=== PATIENT | female | born 1970 | race Caucasian/White ===

== ENCOUNTER → 2018-05-31 08:56 | Outpatient (CLI) | payer BC, SELFPAY ==
--- NOTE | 2018-05-31 09:00 | US_ITS ---
US abdomen limited History:Upper abdominal pain, recent cholecystectomy Ordering Physician:Jhoan Diallo MD Patient Age: 48 years Comparison:None Findings: Pancreas:Unremarkable. No obvious mass or abnormal fluid collection. No ductal dilatation Liver:Unremarkable. No obvious mass or abnormal fluid collection. No ductal dilatation. There is appropriate directional blood flow within a nondilated portal vein. Common bile duct is normal at 5 mm. Right Kidney:Unremarkable. Normal size and echogenicity. No hydronephrosis Gallbladder:Status post cholecystectomy. Normal common bile duct 5 mm Impression:Status post cholecystectomy. Unremarkable right upper quadrant ultrasound. No biliary dilatation
== END ==
PROVIDERS: PCP Family Medicine; Visit Provider Internal Medicine Gastroenterology
DX: R10.11 Right upper quadrant pain (principal)
CPT/HCPCS: 76705

== ENCOUNTER → 2021-09-21 11:41 | Outpatient (CLI) | payer BC, SELFPAY ==
--- NOTE | 2021-09-21 | CA_ITS ---
APPROVED REPORT Exam: Pharmacologic Technologist: Kathie Terrell, Ht: 6 ft 1 in Wt: 315 lbs BSA: 2.61 m2 HR: 61 bpm BP: 159/81 mmHg Rhythm: NSR, PVCS, LVH Medical History Medical History: HTN, Hyperlipidemia Medications: ATORVASTATIN, BUSPIRONE, CETIRIZINE, DICLOFENAC, EPINEPHRINE, VIT D2, ESCITALOPRAM, LISINOPRIL, METOPROLOL, OMEPRAZOLE, POLYETHYLENE, PSYLLIUM, SUCRALFATE Cardiac Risk Factors: HTN, Hyperlipidemia, FHX of CAD Stress Test Details Test: LEXISCAN HR Resting HR: 62 bpm Max Heart Rate (APMHR): 167.942035 bpm Max HR Achieved: 91 bpm Target HR (85% APMHR): 141.619408 bpm % of APMHR: 54.49 Recovery HR: 71 bpm BP Resting BP: 159/81 mmHg Max BP: 159/81 mmHg Recovery BP: 149.0/79.0 mmHg ECG Resting ECG: NSR, PVCS, LVH Clinical Exercise duration: 04:01 min Highest Stage Achieved: Stress ECG Conclusion PT HAD CHEST HEAVINESS, SOA, DENISE. RARE PVC. NO SIGNIFICANT CHANGES. UNREMARKABLE LEXISCAN STRESS MYOVIEW IMAGES REPORTED SEPARATELY Electronically signed by : eHrman Hill MD 09/21/2021 17:11:27
--- NOTE | 2021-09-21 11:42 | NM_ITS ---
APPROVED REPORT Exam: Nuclear Stress Test Indication: chest pain..syncope..fatigue Patient Location: Outpatient Stress Tech: Kathie Terrell NM Tech:Tyesha PryorFROYT, RT (R)(N) Ht: 6 ft 1 in Wt: 315 lbs Bra Size: 46d HR: 62 bpm BP: 159/81 mmHg BSA: 2.61 m2 TID: 1.16 BMI: 41.5 History: chest pain..syncope..fatigue Procedure: Patient received a 0.4 mg of intravenous Lexiscan, resting heart rate 62 bpm, resting blood pressure 159/81 mmHg, with Lexiscan maximum heart rate achived was 91 bpm which is 85 % of the maximum predicted heart rate and blood pressure was 159/81 mmHg. With Lexiscan, patient denied any complaint of chest pain. patient was unable to lay on her belly for prone images. Electrocardiogram Resting electrocardiogram shows sinus rhythm, with Lexiscan there is less than 1.[address] segment depression noted from the baseline EKG. The EKG portion of the Lexiscan is nondiagnostic. Cardiac Stress and Resting SPECT Images: Cardiac Stress and Resting SPECT images were obtained using technetium 99m Myoview 32.9 mCi stress and 10.78 mCi at rest. Gated SPECT for analysis of segmental wall motion and calculation of the ejection fraction also done. Cardiac stress and rest SPECT images show uniform myocardial activity without segmental perfusion abnormality, computer derived ejection fraction is 56% with no regional wall motion abnormality, right ventricle is normal size and contractility. Conclusion: 1. The EKG portion of the Lexiscan is nondiagnostic. 2. No scintigraphic evidence of reversible ischemia seen, computer derived ejection fraction 56% with no regional wall motion abnormality, right ventricle is normal size and contractility. 3. Normal Lexiscan Myoview study. Electronically signed by : Herman Hill MD 09/23/2021 13:37:46
--- NOTE | 2021-09-21 12:49 | CA_ITS ---
APPROVED REPORT EXAM: Comprehensive 2D, Doppler, and color-flow Echocardiogram Sounding Device Operator: DB Aaron, RVS Ht: 6 ft 1 in Wt: 315lbs BSA: 2.61 BP: 145/82 mmHg Indications: CP, BABAK, CP, HTN, SOB 2D Dimensions IVSd 0.96 cm LVEF (Visual) 39.00 % PWd 0.84 cm LVDd 4.62 cm LVDs 3.75 cm Aortic Root 2.49 cm Left Atrium 3.82 cm LVOT 2.23 cm (M/F) 1.5-2.5 M-Mode Dimensions LA Diam 3.70 cm (1.9-4.0) Ao Diam 3.16 cm (2.0-3.7) EPSs 1.18 cm TAPSE 2.59 (<1.7) LV Diastology E Decel Time 293.00 (160-240 msec) E/A Ratio 1.48 MED E' 8.70 (< 7 cm/sec) MED A' 5.90 cm/s E'/MED E' Ratio 11.80 (>14) LAT E' 7.20 (<10 cm/sec) LAT A' 10.80 cm/s E/LAT E' Ratio 14.26 (>14) Aortic Valve LVOT Max 97.00 (70-110 cm/s) LVOT VTI 22.15 cm AoV Peak Raul. 156.00 (50-130 cm/s) AO Peak GR. 9.80 mmHg AO Mean GR. 5.00 (<5 mmHg) AO VTI 34.17 (18-25 cm) SEBAS (VTI) 2.53 (2.5-4.5 cm2) Mitral Valve MV A Velocity 69.00 (40-130 cm/s) E/A Ratio 1.48 MV Decel. Time 293.00 (160-240 ms) MV Mean Gr. 2.30 (<2mmHg) MV PHT 83.00 ms Pulmonary Valve PV Peak Velocity 78.00 (50-150 cm/s) Tricuspid Valve TR P. Velocity 212.00 cm/s RAP Estimate 10.00 mmHg RVSP 28.00 mmHg Left Ventricle Left atrium normal size, left ventricle is normal size, visually estimated ejection fraction 55% with no regional wall motion abnormality, diastolic parameters are within normal range. Right Ventricle Right atrium and right ventricle are normal size and contractility. Aortic Valve Aortic valve is grossly normal, there is no aortic stenosis or aortic insufficiency. Mitral Valve Mitral valve grossly normal, there is trace mitral regurgitation. Tricuspid Valve Tricuspid grossly normal, there is trace tricuspid regurgitation, tricuspid regurgitation jet velocity is inadequate for calculation of the right ventricular systolic pressure. Pulmonic Valve Pulmonic valve is poorly visualized. Great Vessels Aortic root is normal size. Inferior vena cava is normal size with normal spectral collapse. Pericardium No significant pericardial effusion noted. Conclusion 1. Normal left ventricular size, estimated ejection fraction 55% with no regional wall motion abnormality, diastolic parameters are within normal range. 2. Trace mitral and tricuspid rotation. 3. No significant pericardial effusion 4. Inferior vena cava normal size with normal spectral collapse. Electronically signed by : Herman Hill MD 09/21/2021 16:45:18
--- NOTE | 2021-09-21 13:23 | HMH.ITSHM ---
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 []SUCRALFATE BUSPIRONE VITAMIN D METOPROLOL ESCITALOPRAM ASA ATORVASTATIN OMEPRAZOLE LISINOPRIL
== END ==
PROVIDERS: PCP Family Medicine; Visit Provider Nurse Practitioner Family
DX: R06.00 Dyspnea, unspecified (principal); R07.89 Other chest pain; I10 Essential (primary) hypertension; G47.33 Obstructive sleep apnea (adult) (pediatric); Z82.49 Family history of ischemic heart disease and other diseases of the circulatory system
CPT/HCPCS: 78452; 93017; 93306; A9502; G0399; J2785

== ENCOUNTER → 2021-10-03 07:39 | Outpatient (CLI) | payer SELFPAY ==
--- NOTE | 2021-10-03 07:40 | CT_ITS ---
FINAL REPORT CLINICAL HISTORY: family hx heart disease, chest pain FINDINGS: CT CORONARY CALCIUM SCORE W/O TECHNIQUE: Thin-section axial images were obtained through the heart and coronary arteries per CT coronary calcium score protocol. This study was performed with techniques to keep radiation doses as low as reasonably achievable (ALARA). Individualized dose reduction techniques using automated exposure control or adjustment of mA and/or kV according to the patient's size were employed. FINDINGS: On the axial images, the area of greatest calcification is within the left circumflex with other small areas in the left anterior descending artery and the right coronary artery. This gives a coronary artery calcium score of 69 based on the Agatston scale. This coronary artery calcium score places the patient within the 93rd percentile based on age and gender. The heart size is normal. There is no pleural or pericardial effusion. Limited evaluation of the lungs reveal no suspicious nodule. IMPRESSION: Coronary artery calcium score of 69 based on the Agatston scale placing the patient in the 93rd percentile based on age and gender. Reviewed, Interpreted and Dictated by Shady Godfrey III, MD Transcribed by Oxana Hess Authenticated and [facility]
== END ==
PROVIDERS: PCP Family Medicine; Visit Provider Internal Medicine Cardiovascular Disease
DX: R06.00 Dyspnea, unspecified (principal); R07.89 Other chest pain; Z82.49 Family history of ischemic heart disease and other diseases of the circulatory system
CPT/HCPCS: 75571

== ENCOUNTER → 2021-11-23 08:58 | Outpatient (CLI) | payer BC, SELFPAY ==
[2021-11-23 09:37] LABS: Basophils # 0.1 K/mm3 (0-0.2); Basophils % 1.5 % (0.1-2.0); Eosinophils # 0.2 K/mm3 (0.0-0.4); Eosinophils % 2.1 % (0.1-12.0); Hematocrit 39.9 % (37.0-47.0); Hemoglobin 12.3 g/dL (12.2-16.2); Lymphocytes % 26.8 % (10-50); Mean Corpuscular HGB Conc 30.9 g/dL (31.8-35.4); Mean Corpuscular Hemoglobin 26.8 pg (27.0-31.2); Mean Corpuscular Volume 86.6 fl (81-99); Mean Platelet Volume 10.2 fl (7.4-10.4); Monocytes # 0.4 K/mm3 (0.1-1.0); Monocytes % 4.7 % (1.7-9.3); Neutrophils # 4.8 K/mm3 (1.8-7.8); Neutrophils % 64.9 % (37.0-80.0); Platelet Count 228 K/mm3 (142-424); Red Cell Distribution Width 15.3 % (11.5-17.5); White Blood Count 7.4 K/mm3 (4.8-10.8)
[2021-11-23 10:33] LABS: Anion Gap 9.6 mEq/L (5-15); Blood Urea Nitrogen 9 mg/dl (7-17); Calcium 9.6 mg/dl (8.4-10.2); Carbon Dioxide 30 mmol/L (22.0-30.0); Chloride 106 mmol/L (98-107); Estimated Glomerular Filt Rate 105 ml/min (>60); GFR (African American) 127 ML/MIN (>60); Glucose 106 mg/dl (74-100); Potassium 4.6 mmoL/L (3.5-5.1); Sodium 141 mmol/L (136-145)
== END ==
PROVIDERS: PCP Family Medicine; Visit Provider Internal Medicine Cardiovascular Disease
DX: Z01.812 Encounter for preprocedural laboratory examination (principal); Z20.822 Contact with and (suspected) exposure to COVID-19; R06.00 Dyspnea, unspecified; I10 Essential (primary) hypertension; E78.2 Mixed hyperlipidemia; I25.84 Coronary atherosclerosis due to calcified coronary lesion; G47.33 Obstructive sleep apnea (adult) (pediatric); Z82.49 Family history of ischemic heart disease and other diseases of the circulatory system
CPT/HCPCS: 36415; 80048; 85025; C9803; U0003; U0005

== ENCOUNTER 2021-11-24 08:37 | Day surgery (SDC) | payer BC, SELFPAY ==
[2021-11-24] VITALS (12 sets, daily range): BP systolic 126–149; BP diastolic 76–90; PULSE 54–65; RESP 16–20; TEMP 36.1–37; O2SAT 95–98; BMI 41.0
--- NOTE | 2021-11-24 | IR_ITS ---
APPROVED REPORT Patient Location: Outpatient PROCEDURES Left heart catheterization Left ventriculogram Selective coronary angiogram INDICATION Worsening angina pectoris Informed consent was obtained prior to the procedure. COMPLICATIONS None Estimated Blood Loss: Less than 10 mls TECHNIQUE One percent lidocaine used to anesthetize the right anterior aspect of the wrist. The right radial artery was accessed via the Seldinger technique. A 6 Slovenian sheath was placed in the right radial artery. 2.5 mg of verapamil, 800 mcg of nitroglycerin, 1mg Lidocaine and 5000 U Heparin were given through the arterial sheath. The papa catheter was also used to perform left heart catheterization, left ventriculogram and selective coronary angiogram. At the end of the procedure the sheath was removed good hemostasis was achieved using Traclet band, patient was transferred to the postop holding area in stable condition. ANGIOGRAPHIC RESULTS The left main artery Normal The left anterior descending artery Normal The circumflex artery Normal The right coronary artery Dominant normal The TOW[place]END ventriculogram reveals Dilated preserved 50% The left ventricular end-diastolic pressure Severely elevated at 40 to 45 mmHg IMPRESSION Normal coronary arteries Dilated left ventricle with preserved ejection fraction Severely elevated LVEDP PLAN 1. Treatment of diastolic dysfunction 2. Sleep apnea 3. Avoidance of pop and high salt content Electronically signed by : Kade Abebe MD 11/24/2021 12:13:12
== END 2021-11-24 14:27 | disposition home or self-care (01) ==
LOC: CATHLAB 08:38
PROVIDERS: PCP Family Medicine; Visit Provider Internal Medicine
DX: I25.118 Atherosclerotic heart disease of native coronary artery with other forms of angina pectoris (principal); Z79.899 Other long term (current) drug therapy; Z88.8 Allergy status to other drugs, medicaments and biological substances; I25.84 Coronary atherosclerosis due to calcified coronary lesion; I10 Essential (primary) hypertension; Z82.49 Family history of ischemic heart disease and other diseases of the circulatory system
CPT/HCPCS: 93458; 99152; C1725; C1769; J1644; Q9967

== ENCOUNTER → 2021-12-13 14:42 | Outpatient (CLI) | payer BC, SELFPAY ==
[2021-12-13 15:31] LABS: Anion Gap 14.8 mEq/L (5-15); Blood Urea Nitrogen 13 mg/dl (7-17); Calcium 10.1 mg/dl (8.4-10.2); Carbon Dioxide 28 mmol/L (22.0-30.0); Chloride 100 mmol/L (98-107); Estimated Glomerular Filt Rate 75 ml/min (>60); GFR (African American) 91 ML/MIN (>60); Glucose 152 mg/dl (74-100); Potassium 4.8 mmoL/L (3.5-5.1); Sodium 138 mmol/L (136-145)
== END ==
PROVIDERS: PCP Family Medicine; Visit Provider Nurse Practitioner
DX: R06.00 Dyspnea, unspecified (principal); I10 Essential (primary) hypertension; E78.2 Mixed hyperlipidemia; G47.33 Obstructive sleep apnea (adult) (pediatric)
CPT/HCPCS: 36415; 80048

== ENCOUNTER 2022-05-07 21:48 | Emergency (ER) | payer BC, SELFPAY ==
[2022-05-07 21:49] VITALS: BP 162/85; PULSE 100; RESP 23; TEMP 36.7; O2SAT 97; BMI 39.5
--- NOTE | 2022-05-07 21:58 | XR_ITS ---
PROCEDURE INFORMATION: Exam: XR Chest Exam date and time: 05/07/2022 9:58 PM Age: 52 years old Clinical indication: Chest wall pain; Additional info: Chest pain TECHNIQUE: Imaging protocol: Radiologic exam of the chest. Views: 2 views. COMPARISON: No relevant prior studies available. FINDINGS: Lungs: Clear, symmetrically inflated lungs. Pleural spaces: No pleural effusion. No pneumothorax. Heart/Mediastinum: Cardiac silhouette is normal in size for technique. Bones/joints: Age appropriate. IMPRESSION: No acute cardiopulmonary abnormality.
--- NOTE | 2022-05-07 21:58 | ECG_ITS ---
APPROVED REPORT Exam: Resting ECG HR:97 bpm ECG Measurements Heart Rate [address] 153 P 39 QRSd 93 QRS 13 QT 343 T 73 QTc 397 Conclusion SINUS RHYTHM NONSPECIFIC ST & T-WAVE ABNORMALITY BORDERLINE ECG UNCONFIRMED REPORT Electronically signed by : Cem Salinas MD 05/08/2022 19:45:16
[2022-05-07 22:06] LABS: Basophils # 0.1 K/mm3 (0-0.2); Basophils % 0.9 % (0.1-2.0); Eosinophils # 0.1 K/mm3 (0.0-0.4); Eosinophils % 1.1 % (0.1-12.0); Hematocrit 37.8 % (37.0-47.0); Hemoglobin 12.8 g/dL (12.2-16.2); Lymphocytes # 3.1 K/mm3 (0.7-4.5); Lymphocytes % 26.4 % (10-50); Mean Corpuscular HGB Conc 33.8 g/dL (31.8-35.4); Mean Corpuscular Hemoglobin 28.2 pg (27.0-31.2); Mean Corpuscular Volume 83.5 fl (81-99); Mean Platelet Volume 8.7 fl (7.4-10.4); Monocytes # 0.5 K/mm3 (0.1-1.0); Monocytes % 3.9 % (1.7-9.3); Neutrophils # 7.9 K/mm3 (1.8-7.8); Neutrophils % 67.8 % (37.0-80.0); Platelet Count 307 K/mm3 (142-424); Red Blood Count 4.53 M/mm3 (4.20-5.40); Red Cell Distribution Width 14.6 % (11.5-17.5); White Blood Count 11.7 K/mm3 (4.8-10.8)
[2022-05-07 22:14] LABS: Chloride 103 mmol/L (98-107); Potassium 4.1 mmoL/L (3.5-5.1); Sodium 137 mmol/L (136-145)
--- NOTE | 2022-05-07 22:15 | PC.NURSE ---
Pt rates pain 3 out of 10 prior to giving SL nitro. Jordy. verbal orders to give 1SL nitro tablet at this time
[2022-05-07 22:16] LABS: Blood Urea Nitrogen 13 mg/dl (7-17); Creatinine Clearance Estimated 173 mL/min (50-200); Estimated Glomerular Filt Rate 75 ml/min (>60); GFR (African American) 90 ML/MIN (>60)
[2022-05-07 22:17] LABS: Alanine Aminotransferase 37 U/L (12-78); Albumin Level 4.7 g/dl (3.5-5.0); Alkaline Phosphatase 67 U/L (38-126); Anion Gap 16.1 mEq/L (5-15); Aspartate Amino Transferase 34 U/L (14-36); Bilirubin,Direct 0.2 mg/dl (0.0-0.4); Bilirubin,Indirect 0.2 mg/dL (0.0-0.9); Bilirubin,Total 0.4 mg/dl (0.2-1.3); Bilirubin,Unconjugated 0.2 mg/dL (0.0-1.1); Calcium 9.3 mg/dl (8.4-10.2); Carbon Dioxide 22 mmol/L (22.0-30.0); Glucose 187 mg/dl (74-100); Total Protein,Serum 7.9 g/dl (6.3-8.2)
[2022-05-07 22:18] LABS: Magnesium 1.5 mg/dl (1.6-2.3)
--- NOTE | 2022-05-07 22:19 | HMH.EDCP ---
Discharge Plan Disposition Patient Disposition: Home, Self-Care Chief Complaint: Chest Pain Prescriptions Prescriptions: No Action omeprazole 40 mg capsule,delayed release(DR/EC) 40 mg PO DAILY Label Comments: TAKE 1 CAPSULE BY MOUTH ONCE DAILY ibuprofen 400 mg tablet 400 mg PO Q6HP PRN (Reason: Pain) Label Comments: TAKE 1 TABLET BY MOUTH EVERY 6 HOURS methocarbamol 500 mg tablet 500 mg PO TID metoclopramide HCl 10 mg tablet 10 mg PO QACHS Metamucil (sugar) Powder 1 tbsp PO BID ergocalciferol (vitamin D2) 1,250 mcg (50,000 unit) capsule 1,250 mcg PO WEEKLY epinephrine 0.3 mg/0.3 mL auto-injector 0.3 ml IM ONCE metoprolol tartrate 100 mg tablet 100 mg PO BID Qty: 60 5RF aspirin 81 MG tablet,delayed release (DR/EC) 81 mg PO DAILY famotidine 20 MG tablet 20 mg PO DAILY Beano Tablet 300 unit PO TID PRN (Reason: gas ) furosemide 40 mg tablet 40 mg PO DAILY spironolactone 100 mg tablet 100 mg PO DAILY Rx Instructions: Take 1 tablet by mouth once daily misoprostol [Cytotec] 200 mcg Tablet 200 mcg PO BID atorvastatin 20 MG tablet 20 mg PO DAILY sucralfate 1 GM tablet 1 gm PO QID lisinopril 20 MG tablet 20 mg PO DAILY cetirizine 10 MG capsule 10 mg PO DAILY polyethylene glycol 3350 17 gram/dose powder 17 g PO BID buspirone 10 MG tablet 10 mg PO BID Referrals Follow up/Referrals: Mark Mederos [Primary Care Provider] - See instructions Kade Abebe MD [Staff Physician] - See instructions Clinical Impressions Clinical Impression: Chest pain Instructions Patient Instructions: DI for Atypical Chest Pain Discharge ED Provider: Jordy (ED)Scott Chest Pain HPI General Chief Complaint: Chest Pain Stated Complaint: chest pain Time Seen by Provider: 05/07/22 22:19 Mode of Arrival: Family Vehicle Source of Information: Patient and Medical Record Limitations: No Limitations Description of Symptoms (Recalled from ER Triage Doc. by RN): Pt c/o left chest wall pain and burning in her throat that began at 1900 tonight. She reports the pain is a 6/10 on [employer]. States the left chest wall pain is pressure . She denies any n/v/d. Denies fever or chills. She had a negative heart cath 11/2021 with an EF 55%. She takes a low dose apirin daily, but has not had it today. She was concerned she is in afib d/t her watch alerting she was in afib with a hr of 100-105. History of Present Illness HPI narrative: pt with lt sided chest pain with nausea - has diabetes and tob use - had ht cath which showed elevated lvedp with diastolic dysfunction - no hx of pul emboli - and possible a fib pre watch MD complaint: chest pain indicative of cardiac Onset (ago): hour(s) Duration: intermittent Activity at onset: during rest Severity: moderate Quality: other (pressure ) Associated symptoms: nausea Risk Factors for CAD: Hypertension, Family Hx of CAD, Diabetes and Smoking Treatments prior to or on arrival for Cardiac Chest Pain: none KYMBERLY Score for Non-Stemi Age of Patient: 50-59 years old Heart Rate: 90-109 bpm Systolic Blood Pressure: 120-139 mmhg Serum Creatinine: 0.80-1.19 mg/dl CHF [place] Class: I-No CHF Other Risk Factors: None Non-Stemi Risk Score: 97 Risk Stratification: 1-108 = Low Risk Related Data Prior Cardiac Testing/Procedures: Cardiac Angiogram Home Medications Medication Instructions Recorded Confirmed atorvastatin 20 mg tablet 20 mg PO DAILY Cholesterol 05/27/18 05/07/22 cetirizine 10 mg capsule 10 mg PO DAILY ALLERGIES 05/27/18 05/07/22 lisinopril 20 mg tablet 20 mg PO DAILY BLOOD PRESSURE 05/27/18 05/07/22 sucralfate 1 gram tablet 1 gm PO QID DIGESTION 05/27/18 05/07/22 buspirone 10 mg tablet 10 mg PO BID stomach 02/28/19 05/07/22 epinephrine 0.3 mg/0.3 mL 0.3 ml IM ONCE ax to 09/12/21 05/07/22 injection, auto-injector perfume/collognes ergocalciferol (vit
--- NOTE | 2022-05-07 22:20 | PC.NURSE ---
Pt states pain is now 1 out of 10. made aware. Verbal orders for A1C, lasix iv, reglan IV, and Pepcid IV given at this time.
[2022-05-07 22:29] LABS: Troponin I < 0.01 ng/ml (0.00-0.034)
--- NOTE | 2022-05-07 22:52 | PC.NURSE ---
pt ambulated to ct scan with tory morton & father
[2022-05-07 23:23] LABS: Hemoglobin A1C 6.2 % (4.0-6.0)
--- NOTE | 2022-05-07 23:34 | CT_ITS ---
PROCEDURE INFORMATION: Exam: CTA Chest With Contrast Exam date and time: 05/07/2022 11:52 PM Age: 52 years old Clinical indication: Shortness of breath; Additional info: SOB TECHNIQUE: Imaging protocol: Computed tomographic angiography of the chest with contrast. 3D rendering (Not supervised by radiologist): MIP and/or 3D reconstructed images were created by the technologist. Radiation optimization: All CT scans at this facility use at least one of these dose optimization techniques: automated exposure control; mA and/or kV adjustment per patient size (includes targeted exams where dose is matched to clinical indication); or iterative reconstruction. Contrast material: ISOVUE; Contrast volume: 70 ml; Contrast route: INTRAVENOUS (IV); Other protocol: This patient has received [address] and 0 known cardiac nuclear medicine studies in the 12 months prior to the current study. COMPARISON: CR XR CHEST 2V 05/07/2022 9:58 PM FINDINGS: Pulmonary arteries: Normal. No pulmonary emboli. Aorta: Unremarkable. No aortic aneurysm. No aortic dissection. Lungs: Scattered pulmonary granulomata are noted. Pleural spaces: Unremarkable. No pneumothorax. No pleural effusion. Heart: Unremarkable. No cardiomegaly. No pericardial effusion. Lymph nodes: Unremarkable. No enlarged lymph nodes. Gallbladder and bile ducts: Prior cholecystectomy. No biliary tree dilation or high-density retained stones appreciated. Stomach and bowel: Postprandial stomach. Bones/joints: Unremarkable. No acute fracture. Soft tissues: Unremarkable. IMPRESSION: No evidence of acute pulmonary embolism. Clear lung parenchyma. No abnormality identified to explain patient's dyspnea.
[2022-05-08 01:20] LABS: Troponin I < 0.01 ng/ml (0.00-0.034)
[2022-05-08 01:35] VITALS: BP 119/71; PULSE 82; RESP 20; TEMP 36.6; O2SAT 96
== END 2022-05-08 01:40 | disposition home or self-care (01) ==
PROVIDERS: Emergency Provider Emergency Medicine; PCP Family Medicine
DX: R07.89 Other chest pain (principal); R11.0 Nausea; E11.9 Type 2 diabetes mellitus without complications; K21.9 Gastro-esophageal reflux disease without esophagitis; E78.00 Pure hypercholesterolemia, unspecified; K31.84 Gastroparesis; Z90.49 Acquired absence of other specified parts of digestive tract; Z90.710 Acquired absence of both cervix and uterus; Z98.51 Tubal ligation status
CPT/HCPCS: 71046; 71275; 80048; 80076; 83036; 83735; 83880; 84484; 85025; 93005; 96361; 96374; 96375; 99285; Q9967

== ENCOUNTER → 2022-05-11 15:23 | Outpatient (CLI) | payer BC, SELFPAY | PROVIDERS: PCP Family Medicine; Visit Provider Nurse Practitioner Family | DX: R00.2 Palpitations (principal) | CPT/HCPCS: 93270 ==

== ENCOUNTER → 2022-05-19 16:30 | Outpatient (CLI) | payer BC, SELFPAY ==
[2022-05-19 17:27] LABS: Anion Gap 14.9 mEq/L (5-15); Blood Urea Nitrogen 19 mg/dl (7-17); Calcium 10.1 mg/dl (8.4-10.2); Carbon Dioxide 26 mmol/L (22.0-30.0); Chloride 100 mmol/L (98-107); Estimated Glomerular Filt Rate 75 ml/min (>60); GFR (African American) 90 ML/MIN (>60); Glucose 99 mg/dl (74-100); Potassium 4.9 mmoL/L (3.5-5.1); Sodium 136 mmol/L (136-145)
== END ==
PROVIDERS: PCP Family Medicine; Visit Provider Nurse Practitioner Family
DX: R00.2 Palpitations (principal); R94.30 Abnormal result of cardiovascular function study, unspecified
CPT/HCPCS: 36415; 80048

== ENCOUNTER → 2023-03-13 15:44 | Outpatient (CLI) | payer BC, SELFPAY ==
[2023-03-13 16:15] LABS: Basophils # 0.1 K/mm3 (0-0.2); Basophils % 0.5 % (0.1-2.0); Eosinophils # 0.1 K/mm3 (0.0-0.4); Eosinophils % 1.1 % (0.1-12.0); Hematocrit 38.4 % (37.0-47.0); Hemoglobin 13.2 g/dL (12.2-16.2); Lymphocytes % 23.6 % (10-50); Mean Corpuscular HGB Conc 34.2 g/dL (31.8-35.4); Mean Corpuscular Hemoglobin 28.1 pg (27.0-31.2); Mean Corpuscular Volume 82.2 fl (81-99); Mean Platelet Volume 8.5 fl (7.4-10.4); Monocytes # 0.5 K/mm3 (0.1-1.0); Monocytes % 3.9 % (1.7-9.3); Neutrophils # 9.1 K/mm3 (1.8-7.8); Neutrophils % 70.9 % (37.0-80.0); Platelet Count 282 K/mm3 (142-424); Red Blood Count 4.68 M/mm3 (4.20-5.40); Red Cell Distribution Width 14.7 % (11.5-17.5); White Blood Count 12.8 K/mm3 (4.8-10.8)
[2023-03-13 16:46] LABS: Alanine Aminotransferase 49 U/L (12-78); Albumin Level 4.9 g/dl (3.5-5.0); Alkaline Phosphatase 74 U/L (38-126); Anion Gap 15.2 mEq/L (5-15); Aspartate Amino Transferase 41 U/L (14-36); Bilirubin,Direct 0.2 mg/dl (0.0-0.4); Bilirubin,Indirect 0.1 mg/dL (0.0-0.9); Bilirubin,Total 0.3 mg/dl (0.2-1.3); Bilirubin,Unconjugated 0.2 mg/dL (0.0-1.1); Blood Urea Nitrogen 14 mg/dl (7-17); Calcium 9.3 mg/dl (8.4-10.2); Carbon Dioxide 23 mmol/L (22.0-30.0); Chloride 98 mmol/L (98-107); Cholesterol 145 mg/dl (140-200); Estimated Glomerular Filt Rate 65 ml/min (>60); GFR (African American) 79 ML/MIN (>60); Glucose 128 mg/dl (74-100); HDL Cholesterol 48 mg/dl (40-60); Magnesium 1.4 mg/dl (1.6-2.3); Potassium 4.2 mmoL/L (3.5-5.1); Sodium 132 mmol/L (136-145); Total Protein,Serum 7.9 g/dl (6.3-8.2); Triglycerides 140 mg/dl (30-150); VLDL Cholesterol 28 mg/dL (0-40)
[2023-03-13 16:57] LABS: Direct LDL Cholesterol 78.85 mg/dL (100-129)
[2023-03-13 17:05] LABS: Free T4 (Free Thyroxine) 1.03 ng/dl (0.78-2.19)
[2023-03-13 17:17] LABS: Thyroid Stimulating Hormone 1.32 uIU/mL (0.465-4.68)
== END ==
PROVIDERS: PCP Family Medicine; Visit Provider Physician Assistant
DX: R07.9 Chest pain, unspecified (principal); I50.30 Unspecified diastolic (congestive) heart failure; I10 Essential (primary) hypertension; E78.5 Hyperlipidemia, unspecified; G47.33 Obstructive sleep apnea (adult) (pediatric)
CPT/HCPCS: 36415; 80048; 80061; 80076; 83735; 84439; 84443; 85025

== ENCOUNTER 2023-04-13 15:51 | Outpatient (CLI) | payer BC, SELFPAY ==
[2023-04-13 17:14] LABS: Basophils # 0.1 K/mm3 (0-0.2); Basophils % 0.7 % (0.1-2.0); Eosinophils # 0.1 K/mm3 (0.0-0.4); Eosinophils % 1.1 % (0.1-12.0); Hematocrit 37.9 % (37.0-47.0); Hemoglobin 12.6 g/dL (12.2-16.2); Lymphocytes # 3.1 K/mm3 (0.7-4.5); Lymphocytes % 26.5 % (10-50); Mean Corpuscular HGB Conc 33.3 g/dL (31.8-35.4); Mean Corpuscular Hemoglobin 28.1 pg (27.0-31.2); Mean Corpuscular Volume 84.5 fl (81-99); Mean Platelet Volume 9.1 fl (7.4-10.4); Monocytes # 0.5 K/mm3 (0.1-1.0); Monocytes % 4.5 % (1.7-9.3); Neutrophils # 7.8 K/mm3 (1.8-7.8); Neutrophils % 67.2 % (37.0-80.0); Platelet Count 291 K/mm3 (142-424); Red Blood Count 4.48 M/mm3 (4.20-5.40); Red Cell Distribution Width 15.3 % (11.5-17.5); White Blood Count 11.7 K/mm3 (4.8-10.8)
[2023-04-13 17:59] LABS: Chloride 96 mmol/L (98-107)
[2023-04-13 18:00] LABS: Potassium 5.6 mmoL/L (3.5-5.1); Sodium 134 mmol/L (136-145)
[2023-04-13 18:02] LABS: Alanine Aminotransferase 51 U/L (12-78); Alkaline Phosphatase 71 U/L (38-126); Anion Gap 15.6 mEq/L (5-15); Aspartate Amino Transferase 46 U/L (14-36); Bilirubin,Direct 0.1 mg/dl (0.0-0.4); Bilirubin,Indirect 0.4 mg/dL (0.0-0.9); Bilirubin,Total 0.5 mg/dl (0.2-1.3); Bilirubin,Unconjugated 0.4 mg/dL (0.0-1.1); Blood Urea Nitrogen 16 mg/dl (7-17); Carbon Dioxide 28 mmol/L (22.0-30.0); Cholesterol 147 mg/dl (140-200); Estimated Glomerular Filt Rate 65 ml/min (>60); GFR (African American) 79 ML/MIN (>60); Triglycerides 131 mg/dl (30-150); VLDL Cholesterol 26 mg/dL (0-40)
[2023-04-13 18:03] LABS: Albumin Level 4.6 g/dl (3.5-5.0); Calcium 9.6 mg/dl (8.4-10.2); Chol/HDL Ratio 3.7 (1-3.5); Glucose 101 mg/dl (74-100); HDL Cholesterol 40 mg/dl (40-60); Magnesium 1.7 mg/dl (1.6-2.3); Total Protein,Serum 7.3 g/dl (6.3-8.2)
[2023-04-13 18:14] LABS: Direct LDL Cholesterol 84.93 mg/dL (100-129)
== END 2023-04-13 23:59 ==
LOC: LAB 15:52
PROVIDERS: PCP Family Medicine; Visit Provider Physician Assistant
DX: R07.89 Other chest pain (principal); I50.32 Chronic diastolic (congestive) heart failure; R00.2 Palpitations; I51.89 Other ill-defined heart diseases; E78.2 Mixed hyperlipidemia; R94.30 Abnormal result of cardiovascular function study, unspecified
CPT/HCPCS: 36415; 80048; 80061; 80076; 83735; 85025

== ENCOUNTER 2023-04-25 12:12 | Outpatient (CLI) | payer BC, SELFPAY ==
[2023-04-25 13:02] LABS: Chloride 99 mmol/L (98-107); Potassium 4.5 mmoL/L (3.5-5.1); Sodium 138 mmol/L (136-145)
[2023-04-25 13:05] LABS: Anion Gap 13.5 mEq/L (5-15); Blood Urea Nitrogen 11 mg/dl (7-17); Carbon Dioxide 30 mmol/L (22.0-30.0); Estimated Glomerular Filt Rate 74 ml/min (>60); GFR (African American) 90 ML/MIN (>60); Glucose 100 mg/dl (74-100)
== END 2023-04-25 23:59 ==
LOC: LAB 12:13
PROVIDERS: PCP Family Medicine; Visit Provider Nurse Practitioner
DX: E87.5 Hyperkalemia (principal); I50.32 Chronic diastolic (congestive) heart failure
CPT/HCPCS: 36415; 80048

== ENCOUNTER 2023-12-25 15:42 | Outpatient (CLI) | payer BC, SELFPAY ==
[2023-12-25 16:05] LABS: Basophils # 0.1 K/mm3 (0-0.2); Basophils % 0.5 % (0.1-2.0); Eosinophils # 0.2 K/mm3 (0.0-0.4); Eosinophils % 1.4 % (0.1-12.0); Hematocrit 38.5 % (37.0-47.0); Hemoglobin 12.4 g/dL (12.2-16.2); Lymphocytes # 2.5 K/mm3 (0.7-4.5); Lymphocytes % 19.7 % (10-50); Mean Corpuscular HGB Conc 32.2 g/dL (31.8-35.4); Mean Corpuscular Hemoglobin 28.7 pg (27.0-31.2); Mean Corpuscular Volume 89.4 fl (81-99); Mean Platelet Volume 8.1 fl (7.4-10.4); Monocytes # 0.6 K/mm3 (0.1-1.0); Monocytes % 4.5 % (1.7-9.3); Neutrophils # 9.4 K/mm3 (1.8-7.8); Platelet Count 320 K/mm3 (142-424); Red Blood Count 4.31 M/mm3 (4.20-5.40); Red Cell Distribution Width 14.9 % (11.5-17.5); White Blood Count 12.7 K/mm3 (4.8-10.8)
[2023-12-25 16:33] LABS: Albumin Level 4.5 g/dl (3.5-5.0); Chloride 102 mmol/L (98-107); Potassium 5.2 mmoL/L (3.5-5.1); Sodium 134 mmol/L (136-145)
[2023-12-25 16:35] LABS: Bilirubin,Unconjugated 0.5 mg/dL (0.0-1.1); Blood Urea Nitrogen 15 mg/dl (7-17); Estimated Glomerular Filt Rate 58 ml/min (>60); GFR (African American) 70 ML/MIN (>60)
[2023-12-25 16:36] LABS: Alanine Aminotransferase 35 U/L (12-78); Alkaline Phosphatase 70 U/L (38-126); Anion Gap 11.2 mEq/L (5-15); Aspartate Amino Transferase 31 U/L (14-36); Bilirubin,Direct 0.2 mg/dl (0.0-0.4); Bilirubin,Indirect 0.5 mg/dL (0.0-0.9); Bilirubin,Total 0.7 mg/dl (0.2-1.3); Calcium 9.8 mg/dl (8.4-10.2); Carbon Dioxide 26 mmol/L (22.0-30.0); Glucose 95 mg/dl (74-100); HDL Cholesterol 41 mg/dl (40-60); Magnesium 1.6 mg/dl (1.6-2.3); Triglycerides 209 mg/dl (30-150); VLDL Cholesterol 42 mg/dL (0-40)
[2023-12-25 16:52] LABS: Free T4 (Free Thyroxine) 0.96 ng/dl (0.78-2.19)
[2023-12-25 17:32] LABS: Thyroid Stimulating Hormone 1.53 uIU/mL (0.465-4.68)
[2023-12-25 17:53] LABS: Chol/HDL Ratio 3.2 (1-3.5); Cholesterol 132 mg/dl (140-200)
== END 2023-12-25 23:59 | disposition home or self-care (01) ==
LOC: LAB 15:44
PROVIDERS: PCP Family Medicine; Visit Provider Internal Medicine
DX: I50.32 Chronic diastolic (congestive) heart failure (principal); R94.30 Abnormal result of cardiovascular function study, unspecified; E78.2 Mixed hyperlipidemia; I10 Essential (primary) hypertension; G47.33 Obstructive sleep apnea (adult) (pediatric)
CPT/HCPCS: 36415; 80048; 80061; 80076; 83735; 84439; 84443; 85025

== ENCOUNTER 2024-06-24 15:28 | Outpatient (CLI) | payer BC, SELFPAY ==
[2024-06-24 16:24] LABS: Basophils # 0.1 K/mm3 (0-0.2); Basophils % 0.7 % (0.1-2.0); Eosinophils # 0.1 K/mm3 (0.0-0.4); Eosinophils % 0.8 % (0.1-12.0); Hematocrit 35.5 % (37.0-47.0); Hemoglobin 11.9 g/dL (12.2-16.2); Lymphocytes # 2.6 K/mm3 (0.7-4.5); Lymphocytes % 19.8 % (10-50); Mean Corpuscular HGB Conc 33.5 g/dL (31.8-35.4); Mean Corpuscular Hemoglobin 28.9 pg (27.0-31.2); Mean Corpuscular Volume 86.2 fl (81-99); Mean Platelet Volume 10.9 fl (7.4-10.4); Monocytes # 0.8 K/mm3 (0.1-1.0); Monocytes % 5.7 % (1.7-9.3); Neutrophils # 9.7 K/mm3 (1.8-7.8); Neutrophils % 72.3 % (37.0-80.0); Platelet Count 305 K/mm3 (142-424); Red Blood Count 4.12 M/mm3 (4.20-5.40); Red Cell Distribution Width 13.2 % (11.5-17.5); White Blood Count 13.4 K/mm3 (4.8-10.8)
[2024-06-24 18:23] LABS: Alanine Aminotransferase 33 U/L (12-78); Albumin Level 4.5 g/dl (3.5-5.0); Alkaline Phosphatase 59 U/L (38-126); Anion Gap 13.9 mEq/L (5-15); Aspartate Amino Transferase 31 U/L (14-36); Bilirubin,Direct 0.1 mg/dl (0.0-0.4); Bilirubin,Indirect 0.1 mg/dL (0.0-0.9); Bilirubin,Total 0.2 mg/dl (0.2-1.3); Bilirubin,Unconjugated 0.1 mg/dL (0.0-1.1); Blood Urea Nitrogen 19 mg/dl (7-17); Calcium 9.4 mg/dl (8.4-10.2); Carbon Dioxide 18 mmol/L (22.0-30.0); Chloride 106 mmol/L (98-107); Chol/HDL Ratio 2.4 (1-3.5); Cholesterol 119 mg/dl (140-200); Estimated Glomerular Filt Rate 74 ml/min (>60); GFR (African American) 90 ML/MIN (>60); Glucose 108 mg/dl (74-100); HDL Cholesterol 50 mg/dl (40-60); Magnesium 1.6 mg/dl (1.6-2.3); Potassium 4.9 mmoL/L (3.5-5.1); Sodium 133 mmol/L (136-145); Total Protein,Serum 6.9 g/dl (6.3-8.2); Triglycerides 107 mg/dl (30-150); VLDL Cholesterol 21 mg/dL (0-40)
[2024-06-24 18:35] LABS: Direct LDL Cholesterol 51.14 mg/dL (100-129)
[2024-06-24 18:54] LABS: Thyroid Stimulating Hormone 1.35 uIU/mL (0.465-4.68)
[2024-06-24 20:15] LABS: Hemoglobin A1C 6.2 % (4.0-6.0)
== END 2024-06-24 23:59 | disposition home or self-care (01) ==
LOC: LAB 15:29
PROVIDERS: PCP Family Medicine; Visit Provider Internal Medicine
DX: I50.32 Chronic diastolic (congestive) heart failure (principal); E78.2 Mixed hyperlipidemia; R94.30 Abnormal result of cardiovascular function study, unspecified; I10 Essential (primary) hypertension; G47.33 Obstructive sleep apnea (adult) (pediatric); R07.9 Chest pain, unspecified
CPT/HCPCS: 36415; 80048; 80061; 80076; 83036; 83735; 84439; 84443; 85025

== ENCOUNTER 2024-07-24 15:04 | Outpatient (CLI) | payer BC, SELFPAY ==
--- OUTSIDE RECORDS SUMMARY | 2024-07-24 15:06 | XMS_ITS | Clinical Summary ---
Author Organization [facility] , [facility] Address [address] [place] [address] Phone Care Team Providers Care Counter Supply Worker Name Role Phone YESENIA MAO MD Primary Care Provider [phone] Surinder BARCENAS, Catracho [facility] [phone] Reason for Referral Date Encounter Description Provider Reason for Referral 08/17/21 INJECTION Wade Salomon PA-C Refer ral To Physician Reason for Visit and Chief Complaint The Chief Complaint is: left knee pain Problems Includes: Problems addressed during this encounter and other active Problems All Visits Onset Date Resolved Date Provider Condition S tatus Joint Pain in the Left Knee 08/03/2021 Lonnie Motely MD Active Last Documented On 2 4:10PM ; [facility], [facility] Joint Pain, Localized in the Right Wrist 05/06/2020 Rio Walters MD Active Last Documented On 1 8:23AM ; [facility], [facility] Plan of Treatment Instructions to patient Lose weight Last Documented On 2 3:56PM ; [facility], [facility] Assessments Includes: Assessments from this encounter Findings 51-year-old female presented for evaluation of left knee pain. She reports she has had symptoms for several months. No injury or trauma. Pain is located deep to the kneecap. Worse with increased activities in general. 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 She had a cortisone injection done about a month ago and reports that she only got a couple days of relief. - Last Documented On 08/18/2021 4:40PM ; [facility] 08/03/21- presenting for follow-up. She is interested in proceeding with a PRP injection today. Similar symptoms to her last visit. - Last Documented On 08/18/2021 4:40PM ; [facility] 08/10/21- presenting for follow-up. He is here for the second of 3 PRP injections. No significant change in symptoms as of yet. - Last Documented On 08/18/2021 4:40PM ; [facility] 08/17/2021- presenting for follow-up. He is here for the third of 3 PRP injections no significant symptoms today. - Last Documented On 08/18/2021 4:40PM ; [facility] Physical exam: - Last Documented On 08/18/2021 4:40PM ; [facility] CONSTITUTIONAL: Well developed, well groomed, well nourished patient in no acute distress who appears stated age, height and weight. - Last Documented On 08/18/2021 4:40PM ; [facility] PSYCHIATRIC: The patient is alert and oriented to person, place, date and situation. Mood and affect are normal for current situation. - Last Documented On 08/18/2021 4:40PM ; [facility] LEFT KNEE: No Deformity. Normal Q angle. No discoloration. No Atrophy. tenderness to palpation Under the lateral and medial border of the patella. No crepitation. Trace effusion. Active Range of Motion: Extension 0 degrees, Flexion 125 degrees. Passive Range of Motion: Same as active. Strength: 5/5 quadriceps. 5/5 Hamstrings. Negative Lisa's. Negative posterior drawer. Negative valgus instability. Negative varus instability. Negative Medial McMurrays. Discomfort under the kneecap with Lateral McMurrays. Normal patella mobility with 1+ translation laterally and firm endpoint. Negative patella apprehension. Pain is reproduced with patellar compression and quad activation. - Last Documented On 08/18/2021 4:40PM ; [facility] Assessment and plan: - Last Documented On 08/18/2021 4:40PM ; [facility] 51[facility] with left knee patellofemoral degenerative joint disease. We reviewed her imaging today. We discussed other types of conservative measures. she wishes to proceed with PRP today. - Last Documented On 08/18/2021 4:40PM ; [facility] 15 cc of whole blood was obtained and spun down to obtain approximately 5 cc of leukocyte poor PRP. After sterile prep with alcohol, using sterile technique and superior-lateral approach, 9 cc of clear synovial fluid was aspirated from the left knee without difficulty. Then the 5 cc of PRP was injected intra-articularly to the right knee. Hemostasis was obtained and the injection site was dressed. Patient tolerated the procedure without issues. Will ice for 10-15 minutes once or twice later today. Patient will avoid taking NSAIDs ? 2 weeks. - Last Documented On 08/18/2021 4:40PM ; [facility], [facility] Patient will follow up in 6-8 weeks - Last Documented On 08/18/2021 4:40PM ; [facility], [facility] Instructions Includes: Instructions from this encounter Instructions to patient Lose weight Last Documented On 2 3:56PM ; [facility], [facility] Medical Equipment - Implanted Devices Includes: Current Devices No Medical Equipment Recorded Medications Includes: Medications discussed during this encounter and other current Medications Discontinued / Stopped on this date on 03/25/2021 Diclofenac Sodium 75 MG Oral Tablet Delayed Release Provider: Diagnosis: Last Documented On 2 3:37PM By Melly Coppola ; [facility] Lisinopril 20 MG Oral Tablet Provider: Diagnosis: Last Documented On 2 3:37PM By Melly Coppola ; [facility] Omeprazole 20 MG Oral Ta blet Delayed Release Disintegrating Provider: Diagnosis: Last Documented On 2 3:37PM By Melly Coppola ; [facility] Lexapro 10 MG Oral Tablet Provider: Diagnosis: Last Documented On 2 3:37PM By Melly Coppola ; [facility], [facility] Metamucil 0.36 GM Oral Capsule Provider: Diagnosis: Last Documented On 2 3:37PM By Melly Coppola ; [facility], [facility] Sucralfate 1 GM Oral Tablet Provider: Diagnosis: Last Documented On 2 3:37PM By Melly Coppola ; [facility], [facility] Atorvastatin Calcium 20 MG Oral Tablet Pr ovider: Diagnosis: Last Documented On 2 3:37PM By Melly Coppola ; [facility], [facility] Metoprolol Tartrate 100 MG Oral Tablet Pr ovider: Diagnosis: Last Documented On 2 3:37PM By Melly Coppola ; [facility], [facility] Lisinopril 10 MG Oral Tablet Provider: YESENIA MAO MD Diagnosis: Last Documented On 2 3:37PM By Melly Coppola ; [facility], [facility] busPIRone HCl 10 MG Oral Tablet Provider: VIRGEN FENG II, MD Diagnosis: Last Documented On 2 3:37PM By Melly Coppola ; [facility], [facility] Current Medications (continue as prescribed) Metamucil 28% Oral Packet 10/13/2021 Provider: Diagnosis: Last Documented On 2 8:50AM By Melly Coppola ; [facility], [facility] Allergy Relief 10 MG Oral Capsule 10/13/2021 Provide r: Diagnosis: Last Documented On 2 8:50AM By Melly Coppola ; [facility], [facility] MiraLax 17 GM Oral Packet 10/13/2021 Provider: Diagnosis: Last Documented On 2 8:50AM By Melly Coppola ; [facility], [facility] Metoprolol Tartrate 100 MG Oral Tablet 09/24/2021 Pr ovider: Diagnosis: Last Documented On 2 8:37AM By Melly Coppola ; [facility], [facility] Atorvastatin Calcium 20 MG Oral Tablet 09/02/2021 Pr ovider: YESENIA MAO MD Diagnosis: Last Documented On 2 8:37AM By Melly Coppola ; [facility], [facility] Sucralfate 1 GM Oral Tablet 08/09/2021 Provider: Jerilyn Henning DO Diagnosis: Last Documented On 2 3:36PM By Melly Coppola ; [facility], [facility] Vitamin D (Ergocalciferol) 1 .25 MG (27555 UT) Oral Capsule 07/29/2021 Provider: Jerilyn Henning DO Diagnosis: Last Documented On 2 3:36PM By Melly Coppola ; [facility], [facility] Omeprazole 40 MG Oral Capsule Delayed Release 07/29/19 Provider: YESENIA MAO MD Diagnosis: Last Documented On 2 3:36PM By Melly Coppola ; [facility], [facility] busPIRone HCl 10 MG Oral Tablet 07/28/2021 Provider: VIRGEN FENG II, MD Diagnosis: Last Documented On 2 3:36PM By Melly Coppola ; [facility], [facility] Escitalopram Oxalate 10 MG Oral Tablet 06/18/2021 Pr ovider: YESENIA MAO MD Diagnosis: Last Documented On 2 3:37PM By Melly Coppola ; [facility], [facility] Lisinopril 20 MG Oral Tablet 06/18/2021 Provider: YESENIA MAO MD Diagnosis: Last Documented On 2 3:37PM By Melly Coppola ; [facility] Medications Administered Includes: Administered Medications from this encounter No Administered Medications Recorded Vital Signs Includes: Vital Signs from this encounter Vital Name 08/17/2021 03:49P Blood Pressure Sitting (mmHg) 129/79 Pulse Rate-Sitting (bpm) 74 Height (in) 73 Weight (lb) 313 Body Mass Index (kg/m2) 41.3 Body Surface Area (m2) 2.6 Note: lmr Last Documented: On 08/17/2021 3:55PM ; [facility] Results Includes: Results discussed during this encounter No Results Recorded For Specified Dates History of Present Illness Includes: History of Present Illness from this encounter HPI Amalia Gonzalez is a 51 year old female. - Allergy list reviewed - Problem list reviewed - Medication reconciliation performed - Medication list reviewed Social History Description Last Updated No recent change in diet 03/25/2021 Last Documented On 2 3:37PM ; [facility] Not a current smoker. 03/25/2021 Last Documented On 2 3:37PM ; [facility] Alcohol use 05/06/2020 Last Documented On 2 3:37PM ; [facility] Caffeine use 05/06/2020 Last Documented On 2 3:37PM ; [facility], [facility] Not a current smoker. 05/06/2020 Last Documented On 2 3:37PM ; [facility], [facility] Not exercising regularly 05/06/2020 Last Documented On 2 3:37PM ; [facility], [facility] Not using drugs 05/06/2020 Last Documented On 2 3:37PM ; [facility], [facility] Recent change in diet 05/06/2020 Last Documented On 2 3:37PM ; [facility], [facility] Non-smoker 05/06/2020 Last Documented On 2 3:37PM ; [facility], [facility] Smoking Status Unknown Procedures and Surgical History Includes: Procedures from this encounter Procedures Code Diagnosis Performing Provider Service L ocation Service Date use of tobacco assessment performed 1000F Last Documented On 2 3:56PM ; [facility], [facility] body mass index documented Dr. Yesenia Mao 300 8F Last Documented On 2 3:56PM ; [facility], [facility] referral to physician Last Documented On 2 3:37PM ; [facility], [facility] Medical History Includes: Medical History addressed during this encounter Description Last Updated Recent immunization for flu 01/07/2021 1 08/17/2021 Last Documented On 2 4:40PM ; [facility], [facility] A recent immunization for pneumococcal p neumonia 2019 01/201905/06/2020 Last Documented On 2 3:37PM ; [facility] Anemia 05/06/2020 Last Documented On 2 3:37PM ; [facility], [facility] Appendectomy 05/06/2020 Last Documented On 2 3:37PM ; [facility], [facility] Arthritis 05/06/2020 Last Documented On 2 3:37PM ; [facility], [facility] Heartburn / Acid Reflux 05/06/2020 Last Documented On 2 3:37PM ; [facility], [facility] History of asthma 05/06/2020 Last Documented On 2 3:37PM ; [facility] History of Cancer 05/06/2020 Last Documented On 2 3:37PM ; [facility] History of depression 05/06/2020 Last Documented On 2 3:37PM ; [facility] History of diverticulitis of colon 05/06 Last Documented On 2 3:37PM ; [facility] History of Gallbladder 05/06/2020 Last Documented On 2 3:37PM ; [facility] Hypertension 05/06/2020 Last Documented On 2 3:37PM ; [facility] Hysterectomy 05/06/2020 Last Documented On 2 3:37PM ; [facility] Sleep Apnea 05/06/2020 Last Documented On 2 3:37PM ; [facility] Thyroid Disease 05/06/2020 Last Documented On 2 3:37PM ; [facility] Family History Includes: Family History addressed during this encounter Description Last Updated Diabetes mellitus 05/06/2020 Last Documented On 2 3:37PM ; [facility] Family history of cancer 05/06/2020 Last Documented On 2 3:37PM ; [facility] Family history of heart disease 05/06/19 21 Last Documented On 2 3:37PM ; [facility] Family history of hypertension 1 Last Documented On 2 3:37PM ; [facility] Family history of osteoporosis 1 Last Documented On 2 3:37PM ; [facility] Family history of rheumatoid arthritis 0 05/06/2020 Last Documented On 2 3:37PM ; [facility] Family history of thromboembolic disease 05/06/2020 Last Documented On 2 3:37PM ; [facility] Stroke / Seizures 05/06/2020 Last Documented On 2 3:37PM ; [facility] Review of Systems Includes: Review of Systems from this encounter Systemic: Not feeling tired, no recent weight loss, and no recent weight gain. Head: No headache and no sinus pain. Eyes: No vision problems, no Cataracts, no Glasses/Contacts, and no Glaucoma. Otolaryngeal: No hearing loss and no tinnitus. Cardiovascular: No chest pain or discomfort, no palpitations, no Hypertension, and no High Cholesterol. Pulmonary: No daytime asthma symptoms and no chronic cough. No wheezing. Gastrointestinal: No heartburn and no abdominal pain. No Indigestion, no Acid Reflux, no Peptic Ulcer, no GI Stomach Bleed, and no Ulcers. Endocrine: No hot flashes, no muscle weakness, no Diabetes, no Hypothyroid, and no Hyperthyroid. Hematologic: No easy bleeding, no tendency for easy bruising, and no Anemia. Musculoskeletal: No Arthritis and no lower back pain. No soft tissue swelling and no localized joint pain. Neurological: No dizziness, no convulsions, and no numbness. Psychological: No anxiety, no emotional lability, no depression, and no insomnia. Not crying for no reason. Skin: No dry skin. No Ulcers, no Scars, and no rash. Allergic and Immunologic: No complaint of seasonal allergic reaction. Mental Status Includes: Mental Status from this encounter Description No anxiety Functional Status Includes: Functional Status from this encounter No Functional Status Recorded Physical Exam Includes: Physical Exam from this encounter Immunizations Includes: Immunizations addressed during this encounter Vaccine Dose # Date Site Reaction(s) Status Source Influenza 2 01/07/2021 Complete (Reported) Patient Last Documented On 2 3:58PM ; [facility] Allergies Includes: Active Allergies Substance Type Reaction Onset Date Resolved Date Statu s Sulfa Antibiotics Allergy 05/06/2020 A ctive Last Documented On 2 1:23PM ; [facility] Septra Allergy 05/06/2020 Active Last Documented On 2 1:23PM ; [facility] Penicillins Allergy 05/06/2020 Active Last Documented On 2 1:23PM ; [facility] Encounters Encounter Provider Location Date Check-In Time Check- Out Time Diagnosis INJECTION Wade Salomon PA-C [facility] B 2 3:18PM 4:49PM Insurance Includes: Active Insurance Policies Plan Name Member ID Group # Subscriber Relationship Effect nadira Dates 1 - [facility] [id number] Amalia Carlos Self 04/09/2021 - Unknown Clinical Notes Includes: Clinical Notes from this encounter No Clinical Notes Recorded
--- OUTSIDE RECORDS SUMMARY | 2024-07-24 15:06 | XMS_ITS ---
Care Plan - [facility], [facility] Created on: July 24, 2024 Amalia Gonzalez : 1970 Sex: Female Author Organization [facility], [facility] Address [address] [place] [address] Phone Care Team Providers Care Human Resources Executive Assistant Name Role Phone MAYCO BARCENAS, YESENIA Primary Care Provider [phone] Surinder BARCENAS, Catracho Calderon [phone]
--- OUTSIDE RECORDS SUMMARY | 2024-07-24 15:06 | XMS_ITS ---
Author Organization [facility] Address [address] [place] [address] Phone Care Team Providers Care Timing Machine Operator Name Role Phone YESENIA MAO MD Primary Care Provider [phone] Surinder BARCENAS, [facility] [phone] Reason for Referral Date Encounter Description Provider Reason for Referral 11/23/21 Follow Up Lonnie Motley MD Referral To Physician; Referral To Physician 10/13/21 Follow Up Wade Salomon PA-C Refer ral To Physician; Referral To Physician 08/17/21 INJECTION Wade Salomon PA-C Refer ral To Physician 05/03/21 IN HOUSE REFERRAL Lonnie Motley MD Ref erral To Physician Problems Includes: Active, inactive, and resolved Problems All Visits Onset Date Resolved Date Provider Condition S tatus Joint Pain in the Left Knee 08/03/2021 Lonnie Motley MD Active Last Documented On 2 4:10PM ; [facility] Joint Pain, Localized in the Right Wrist 05/06/2020 Rio Walters MD Active Last Documented On 1 8:23AM ; [facility] Plan of Treatment Instructions to patient No intervention and counseli ng on cessation of tobacco use Last Documented On 2 1:24PM ; [facility] Lose weight Last Documented On 2 1:24PM ; [facility] No intervention and counseli ng on cessation of tobacco use Last Documented On 2 8:49AM ; [facility] Lose weight Last Documented On 2 8:20AM ; [facility] Lose weight Last Documented On 2 3:56PM ; [facility] Lose weight Last Documented On 2 11:08AM ; [facility] Lose weight Last Documented On 1 10:07AM ; [facility] Assessments Includes: Assessments for all patient encounters Findings Encounter Date No diagnosis of underweight Follow Up with Lonnie Motley MD 11/23/2021 Last Documented On 2 2:14PM ; [facility] No diagnosis of underweight Follow Up with Wade Salomon PA-C 10/13/2021 Last Documented On 2 5:17PM ; [facility], [facility] Instructions Includes: Instructions for all patient encounters Instructions to patient No intervention and counseli ng on cessation of tobacco use Last Documented On 2 1:24PM ; [facility] Lose weight Last Documented On 2 1:24PM ; [facility] No intervention and counseli ng on cessation of tobacco use Last Documented On 2 8:49AM ; [facility] Lose weight Last Documented On 2 8:20AM ; [facility] Lose weight Last Documented On 2 3:56PM ; [facility] Lose weight Last Documented On 2 11:08AM ; [facility] Lose weight Last Documented On 1 10:07AM ; [facility], [facility] Medical Equipment - Implanted Devices Includes: Current and historical Devices No Medical Equipment Recorded Medications Includes: Current and historical Medications Current Medications (continue as prescribed) Metamucil 28% Oral Packet 10/13/2021 Provider: Diagnosis: Last Documented On 2 8:50AM By Melly Coppola ; [facility], [facility] Allergy Relief 10 MG Oral Capsule 10/13/2021 Provide r: Diagnosis: Last Documented On 2 8:50AM By Melly Coppola ; [facility], [facility] MiraLax 17 GM Oral Packet 10/13/2021 Provider: Diagnosis: Last Documented On 2 8:50AM By Melly Coppola ; [facility], [facility] Metoprolol Tartrate 100 MG Oral Tablet 09/24/2021 Pr ovider: Diagnosis: Last Documented On 2 8:37AM By Melly Coppola ; [facility], [facility] Atorvastatin Calcium 20 MG Oral Tablet 09/02/2021 Pr ovider: YESENIA MAO MD Diagnosis: Last Documented On 2 8:37AM By Melly Coppola ; [facility], [facility] Sucralfate 1 GM Oral Tablet 08/09/2021 Provider: Jerilyn Henning DO Diagnosis: Last Documented On 2 3:36PM By Melly Coppola ; [facility], [facility] Vitamin D (Ergocalciferol) 1 .25 MG (36503 UT) Oral Capsule 07/29/2021 Provider: Jerilyn Henning DO Diagnosis: Last Documented On 2 3:36PM By Melly Coppola ; [facility], [facility] Omeprazole 40 MG Oral Capsule Delayed Release 07/29/19 Provider: YESENIA MAO MD Diagnosis: Last Documented On 2 3:36PM By Melly Coppola ; [facility], [facility] busPIRone HCl 10 MG Oral Tablet 07/28/2021 Provider: VIRGEN FENG II, MD Diagnosis: Last Documented On 2 3:36PM By Melly Coppola ; [facility], [facility] Escitalopram Oxalate 10 MG Oral Tablet 06/18/2021 Pr ovider: YESENIA MAO MD Diagnosis: Last Documented On 2 3:37PM By Melly Coppola ; [facility], [facility] Lisinopril 20 MG Oral Tablet 06/18/2021 Provider: YESENIA MAO MD Diagnosis: Last Documented On 2 3:37PM By Melly Coppola ; [facility], [facility] Past Medications on file Metoprolol Tartrate 100 MG O ral Tablet 08/16/2021 - 10/13/2021 Provider: YESENIA MAO MD Diagnosis: Last Documented On 2 8:38AM By Melly Coppola ; [facility], [facility] Atorvastatin Calcium 20 MG O ral Tablet 06/03/2021 - 10/13/2021 Provider: Jerilyn Henning DO Diagnosis: Last Documented On 2 8:38AM By Melly Coppola ; [facility], [facility] Metoprolol Tartrate 100 MG O ral Tablet 05/07/2021 - 10/13/2021 Provider: YESENIA MAO MD Diagnosis: Last Documented On 2 8:38AM By Melly Coppola ; [facility], [facility] Diclofenac Sodium 75 MG Oral Tablet Delayed Release 03/25/2021 - 08/17/2021 Provider: Diagnosis: Last Documented On 2 3:37PM By Melly Coppola ; [facility], [facility] Allergy Relief 10 MG Oral Capsule 03/25/2021 - 022 Provider: Diagnosis: Last Documented On 2 8:50AM By Melly Coppola ; [facility], [facility] Lisinopril 20 MG Oral Tablet 03/25/2021 - 08/17/2021 P rovider: Diagnosis: Last Documented On 2 3:37PM By Melly Coppola ; [facility], [facility] Omeprazole 20 MG Oral Ta blet Delayed Release Disintegrating 03/25/2021 - 08/17/2021 Provider: Diagnosis: Last Documented On 2 3:37PM By Melly Coppola ; [facility], [facility] Lexapro 10 MG Oral Tablet 03/25/2021 - 08/17/2021 Prov ider: Diagnosis: Last Documented On 2 3:37PM By Melly Coppola ; [facility], [facility] Metamucil 0.36 GM Oral Capsule 05/06/2020 - 08/17/2021 Provider: Diagnosis: Last Documented On 2 3:37PM By Melly Coppola ; [facility], [facility] Sucralfate 1 GM Oral Tablet 05/06/2020 - 08/17/2021 Pr ovider: Diagnosis: Last Documented On 2 3:37PM By Melly Coppola ; [facility], [facility] Atorvastatin Calcium 20 MG Oral Tablet 05/06/2020 - Provider: Diagnosis: Last Documented On 2 3:37PM By Melly Coppola ; [facility], [facility] Metoprolol Tartrate 100 MG Oral Tablet 05/06/2020 - Provider: Diagnosis: Last Documented On 2 3:37PM By Melly Coppola ; [facility], [facility] MiraLax 17 GM Oral Packet 05/06/2020 - 10/13/2021 Prov ider: Diagnosis: Last Documented On 2 8:50AM By Melly Coppola ; [facility], [facility] Lisinopril 10 MG Oral Tablet 04/27/2020 - 08/17/2021 Loli valverde: YESENIA MAO MD Diagnosis: Last Documented On 2 3:37PM By Melly Coppola ; [facility], [facility] busPIRone HCl 10 MG Oral Tablet 04/20/2020 - 08/17/2021 Provider: VIRGEN Mckeon MD Diagnosis: Last Documented On 2 3:37PM By Melly Coppola ; [facility], [facility] Shingrix 50 MCG/0.5ML Intram uscular Suspension Reconstituted 04/15/2020 - 03/25/2021 Provider: Diagnosis: Last Documented On 1 9:16AM By Pearl Parra ; [facility], [facility] Cortisporin 3.5-68428-4.5 Ex ternal Cream 04/06/2020 - 03/25/2021 Provider: YESENIA MAO MD Diagnosis: Last Documented On 1 9:16AM By Pearl Parra ; [facility], [facility] Medications Administered Includes: Administered Medications in patient's chart No Administered Medications Recorded Results Includes: Results from 07/25/2023 through 07/24/2024 No Results Recorded For Specified Dates History of Present Illness History of Present Illness not supported for this document type No History of Present Illness Recorded Social History Description Last Updated Not a smoker 10/13/2021 Last Documented On 2 5:17PM ; [facility] No recent change in diet 03/25/2021 Last Documented On 1 5:17PM ; [facility] Not a current smoker. 03/25/2021 Last Documented On 1 5:17PM ; [facility] Alcohol use 05/06/2020 Last Documented On 1 9:52AM ; [facility] Caffeine use 05/06/2020 Last Documented On 1 9:52AM ; [facility] Not a current smoker. 05/06/2020 Last Documented On 1 9:52AM ; [facility] Not exercising regularly 05/06/2020 Last Documented On 1 9:52AM ; [facility] Not using drugs 05/06/2020 Last Documented On 1 9:52AM ; [facility] Recent change in diet 05/06/2020 Last Documented On 1 9:52AM ; [facility] Non-smoker 05/06/2020 Last Documented On 1 9:52AM ; [facility] Smoking Status Unknown Medical History Includes: Medical History in patient's chart Description Last Updated Recent immunization for flu 01/07/2021 1 08/17/2021 Last Documented On 2 4:40PM ; [facility], [facility] A recent immunization for pneumococcal p neumonia 2019 01/201905/06/2020 Last Documented On 1 9:52AM ; [facility] Anemia 05/06/2020 Last Documented On 1 9:52AM ; [facility] Appendectomy 05/06/2020 Last Documented On 1 9:52AM ; [facility] Arthritis 05/06/2020 Last Documented On 1 9:52AM ; [facility] Heartburn / Acid Reflux 05/06/2020 Last Documented On 1 9:52AM ; [facility] History of asthma 05/06/2020 Last Documented On 1 9:52AM ; [facility] History of Cancer 05/06/2020 Last Documented On 1 9:52AM ; [facility] History of depression 05/06/2020 Last Documented On 1 9:52AM ; [facility] History of diverticulitis of colon 05/06 Last Documented On 1 9:52AM ; [facility] History of Gallbladder 05/06/2020 Last Documented On 1 9:52AM ; [facility] Hypertension 05/06/2020 Last Documented On 1 9:52AM ; [facility] Hysterectomy 05/06/2020 Last Documented On 1 9:52AM ; [facility] Sleep Apnea 05/06/2020 Last Documented On 1 9:52AM ; [facility] Thyroid Disease 05/06/2020 Last Documented On 1 9:52AM ; [facility] Family History Includes: Family History in patient's chart Description Last Updated Diabetes mellitus 05/06/2020 Last Documented On 1 9:52AM ; [facility] Family history of cancer 05/06/2020 Last Documented On 1 9:52AM ; [facility] Family history of heart disease 05/06/19 21 Last Documented On 1 9:52AM ; [facility] Family history of hypertension 1 Last Documented On 1 9:52AM ; [facility] Family history of osteoporosis 1 Last Documented On 1 9:52AM ; [facility] Family history of rheumatoid arthritis 0 05/06/2020 Last Documented On 1 9:52AM ; [facility] Family history of thromboembolic disease 05/06/2020 Last Documented On 1 9:52AM ; [facility] Stroke / Seizures 05/06/2020 Last Documented On 1 9:52AM ; [facility] Review of Systems Review of Systems not supported for this document type No Review of Systems Recorded Mental Status Description No anxiety Functional Status No Functional Status Recorded Physical Exam Physical Exam not supported for this document type No Physical Exam Recorded Immunizations Includes: Immunizations in patient's chart Vaccine Dose # Date Site Reaction(s) Status Source Influenza 1 01/08/2020 Complete (Reported) Patient Last Documented On 1 9:34AM ; [facility] Influenza 2 01/07/2021 Complete (Reported) Patient Last Documented On 2 3:58PM ; [facility] PCV (Pneumovax 23) 1 01/07/2019 Complete ( Reported) Patient Last Documented On 1 9:34AM ; [facility] Allergies Includes: Active, inactive, and resolved Allergies Substance Type Reaction Onset Date Resolved Date Statu s Sulfa Antibiotics Allergy 05/06/2020 A ctive Last Documented On 2 1:23PM ; [facility] Septra Allergy 05/06/2020 Active Last Documented On 2 1:23PM ; [facility] Penicillins Allergy 05/06/2020 Active Last Documented On 2 1:23PM ; [facility] Insurance Includes: Active Insurance Policies Plan Name Member ID Group # Subscriber Relationship Effect nadira Dates 1 - [facility] [id number] Amalia Gonzalez Self 04/09/2021 - Unknown Clinical Notes Includes: Signed Clinical Notes starting from 03/23/2022 No Clinical Notes Recorded
--- OUTSIDE RECORDS SUMMARY | 2024-07-24 15:06 | XMS_ITS | Clinical Summary ---
Author Organization [facility] Address [address] [place] [address] Phone Care Team Providers Care Appliance Repairer Name Role Phone YESENIA MAO MD Primary Care Provider [phone] Surinder BARCENAS, [facility] [phone] Reason for Referral Date Encounter Description Provider Reason for Referral 10/13/21 Follow Up Wade Salomon PA-C Refer ral To Physician; Referral To Physician Reason for Visit and Chief Complaint The Chief Complaint is: left knee pain Problems Includes: Problems addressed during this encounter and other active Problems All Visits Onset Date Resolved Date Provider Condition S tatus Joint Pain in the Left Knee 08/03/2021 Lonnie Motley MD Active Last Documented On 2 4:10PM ; [facility], [facility] Joint Pain, Localized in the Right Wrist 05/06/2020 Rio Walters MD Active Last Documented On 1 8:23AM ; [facility], [facility] Plan of Treatment Instructions to patient No intervention and counseli ng on cessation of tobacco use Last Documented On 2 8:49AM ; [facility], [facility] Lose weight Last Documented On 2 8:20AM ; [facility], [facility] Assessments Includes: Assessments from this encounter Findings - No diagnosis of underweight - Last Documented On 10/13/2021 5:17PM ; [facility], [facility] 51-year-old female presented for evaluation of left knee pain. She reports she has had symptoms for several months. No injury or trauma. Pain is located deep to the kneecap. Worse with increased activities in general. 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 She had a cortisone injection done about a month ago and reports that she only got a couple days of relief. - Last Documented On 10/13/2021 5:17PM ; [facility], [facility] 08/03/21- presenting for follow-up. She is interested in proceeding with a PRP injection today. Similar symptoms to her last visit. - Last Documented On 10/13/2021 5:17PM ; [facility], [facility] 08/10/21- presenting for follow-up. He is here for the second of 3 PRP injections. No significant change in symptoms as of yet. - Last Documented On 10/13/2021 5:17PM ; [facility], [facility] 08/17/2021- presenting for follow-up. He is here for the third of 3 PRP injections no significant symptoms today. - Last Documented On 10/13/2021 5:17PM ; [facility], [facility] 10/13/21- patient here for follow up after PRP injection into the left knee she states she is feeling better, she has only minimal discomfort going up steps/ She still has some mild swelling on and off in this knee but overall states the injections did help her. - Last Documented On 10/13/2021 5:17PM ; [facility], [facility] Physical exam: - Last Documented On 10/13/2021 5:17PM ; [facility], [facility] CONSTITUTIONAL: Well developed, well groomed, well nourished patient in no acute distress who appears stated age, height and weight. - Last Documented On 10/13/2021 5:17PM ; [facility], [facility] PSYCHIATRIC: The patient is alert and oriented to person, place, date and situation. Mood and affect are normal for current situation. - Last Documented On 10/13/2021 5:17PM ; [facility], [facility] LEFT KNEE: No Deformity. Normal Q [...] and quad activation. - Last Documented On 10/13/2021 5:17PM ; [facility] Assessment and plan: - Last Documented On 10/13/2021 5:17PM ; [facility] 51-year-old with left knee patellofemoral degenerative joint disease. We reviewed her imaging today. She is doing better after a series of PRP injections into this knee. She is only having mild pain in this knee at this point. She is finished with therapy. 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 She is stable with good ROM. We did discuss treatment options for her moving forward if symptoms warrant. We did discuss she could have another cortisone injection into this knee to help with inflammation. We did also discuss surgical options such as a dignostic knee scope with clean up of the knee. We also discussed she may have to have a knee replacement if these other options fail. I will have her follow up with in a few weeks to discuss surgical intervention and further treatment plan. - Last Documented On 10/13/2021 5:17PM ; [facility], [facility] Instructions Includes: Instructions from this encounter Instructions to patient No intervention and counseli alma on cessation of tobacco use Last Documented On 2 8:49AM ; [facility], [facility] Lose weight Last Documented On 2 8:20AM ; [facility] Medical Equipment - Implanted Devices Includes: Current Devices No Medical Equipment Recorded Medications Includes: Medications discussed during this encounter and other current Medications Discontinued / Stopped on this date YESENIA MAO MD on 08/16/2021 Metoprolol Tartrate 100 MG Oral Tablet Pr ovider: YESENIA MAO MD Diagnosis: Last Documented On 2 8:38AM By Melly Coppola ; [facility], [facility] Atorvastatin Calcium 20 MG Oral Tablet Pr ovider: Jerilyn Henning DO Diagnosis: Last Documented On 2 8:38AM By Melly Coppola ; [facility], [facility] Metoprolol Tartrate 100 MG Oral Tablet Pr ovider: YESENIA MAO MD Diagnosis: Last Documented On 2 8:38AM By Melly Coppola ; [facility], [facility] Current Medications (continue as prescribed) Metamucil 28% Oral Packet 10/13/2021 Provider: Diagnosis: Last Documented On 2 8:50AM By Melly Coppola ; [facility], [facility] Allergy Relief 10 MG Oral Capsule 10/13/2021 Provide r: Diagnosis: Last Documented On 2 8:50AM By Melly Coppola ; [facility], [facility] MiraLax 17 GM Oral Packet 10/13/2021 Provider: Diagnosis: Last Documented On 2 8:50AM By Melly Coppola ; [facility], [facility] Metoprolol Tartrate 100 MG Oral Tablet 09/24/2021 Pr ovider: Diagnosis: Last Documented On 2 8:37AM By Melly Coppola ; [facility], [facility] Atorvastatin Calcium 20 MG Oral Tablet 09/02/2021 Pr ovider: YESENIA MAO MD Diagnosis: Last Documented On 2 8:37AM By Melly Coppola ; [facility], [facility] Sucralfate 1 GM Oral Tablet 08/09/2021 Provider: Jerilyn Henning DO Diagnosis: Last Documented On 2 3:36PM By Melly Coppola ; [facility], [facility] Vitamin D (Ergocalciferol) 1 .25 MG (93215 UT) Oral Capsule 07/29/2021 Provider: Jerilyn Henning DO Diagnosis: Last Documented On 2 3:36PM By Melly Coppola ; [facility], [facility] Omeprazole 40 MG Oral Capsule Delayed Release 07/29/19 Provider: YESENIA MAO MD Diagnosis: Last Documented On 2 3:36PM By Melly Coppola ; [facility], [facility] busPIRone HCl 10 MG Oral Tablet 07/28/2021 Provider: VIRGEN FENG II, MD Diagnosis: Last Documented On 2 3:36PM By Melly Coppola ; [facility] Escitalopram Oxalate 10 MG Oral Tablet 06/18/2021 Pr ovider: YESENIA MAO MD Diagnosis: Last Documented On 2 3:37PM By Melly Coppola ; [facility] Lisinopril 20 MG Oral Tablet 06/18/2021 Provider: YESENIA MAO MD Diagnosis: Last Documented On 2 3:37PM By Melly Coppola ; [facility] Medications Administered Includes: Administered Medications from this encounter No Administered Medications Recorded Vital Signs Includes: Vital Signs from this encounter Vital Name 10/13/2021 08:40A Blood Pressure Sitting (mmHg) 132/84 Pulse Rate-Sitting (bpm) 67 Height (in) 73 Weight (lb) 315 Body Mass Index (kg/m2) 41.6 Body Surface Area (m2) 2.6 Note: aek/ patient gave ve rbal weight Last Documented: On 10/13/2021 8:49AM ; [facility] Results Includes: Results discussed during this encounter No Results Recorded For Specified Dates History of Present Illness Includes: History of Present Illness from this encounter HPI Amalia Gonzalez is a 51 year old female. - Allergy list reviewed - Problem list reviewed - Medication reconciliation performed - Medication list reviewed - Previous history of new onset pain 05/03/2021 - Patient pain level from 1-10: - No previous treatment. Social History Description Last Updated Not a smoker 10/13/2021 Last Documented On 2 5:17PM ; [facility] No recent change in diet 03/25/2021 Last Documented On 2 8:20AM ; [facility] Not a current smoker. 03/25/2021 Last Documented On 2 8:20AM ; [facility] Alcohol use 05/06/2020 Last Documented On 2 8:20AM ; [facility] Caffeine use 05/06/2020 Last Documented On 2 8:20AM ; [facility] Not a current smoker. 05/06/2020 Last Documented On 2 8:20AM ; [facility] Not exercising regularly 05/06/2020 Last Documented On 2 8:20AM ; [facility] Not using drugs 05/06/2020 Last Documented On 2 8:20AM ; [facility] Recent change in diet 05/06/2020 Last Documented On 2 8:20AM ; [facility] Non-smoker 05/06/2020 Last Documented On 2 8:20AM ; [facility] Smoking Status Unknown Procedures and Surgical History Includes: Procedures from this encounter Procedures Code Diagnosis Performing Provider Service L ocation Service Date no intervention and counseling on cessation of tobacco use 4000F Last Documented On 2 8:49AM ; [facility], [facility] use of tobacco assessment performed 1000F Last Documented On 2 8:20AM ; [facility] patient not screened for future fall risk 3288F Last Documented On 2 8:49AM ; [facility] body mass index documented Dr. Yesenia Mao 300 8F Last Documented On 2 8:20AM ; [facility] follow-up visit not in one month with PC P for elevated BP Last Documented On 2 8:49AM ; [facility] referral to physician Last Documented On 2 8:20AM ; [facility] no referral to physician Last Documented On 2 8:49AM ; [facility] weight control goals: not including weig ht gain Last Documented On 2 8:49AM ; [facility] Medical History Includes: Medical History addressed during this encounter Description Last Updated Recent immunization for flu 01/07/202108/17/2021 Last Documented On 2 8:20AM ; [facility] A recent immunization for pneumococcal p neumonia 2019 01/201905/06/2020 Last Documented On 2 8:20AM ; [facility], [facility] Anemia 05/06/2020 Last Documented On 2 8:20AM ; [facility] Appendectomy 05/06/2020 Last Documented On 2 8:20AM ; [facility] Arthritis 05/06/2020 Last Documented On 2 8:20AM ; [facility] Heartburn / Acid Reflux 05/06/2020 Last Documented On 2 8:20AM ; [facility] History of asthma 05/06/2020 Last Documented On 2 8:20AM ; [facility] History of Cancer 05/06/2020 Last Documented On 2 8:20AM ; [facility] History of depression 05/06/2020 Last Documented On 2 8:20AM ; [facility] History of diverticulitis of colon 05/06 Last Documented On 2 8:20AM ; [facility] History of Gallbladder 05/06/2020 Last Documented On 2 8:20AM ; [facility] Hypertension 05/06/2020 Last Documented On 2 8:20AM ; [facility] Hysterectomy 05/06/2020 Last Documented On 2 8:20AM ; [facility] Sleep Apnea 05/06/2020 Last Documented On 2 8:20AM ; [facility] Thyroid Disease 05/06/2020 Last Documented On 2 8:20AM ; [facility] Family History Includes: Family History addressed during this encounter Description Last Updated Diabetes mellitus 05/06/2020 Last Documented On 2 8:20AM ; [facility] Family history of cancer 05/06/2020 Last Documented On 2 8:20AM ; [facility] Family history of heart disease 05/06/19 21 Last Documented On 2 8:20AM ; [facility] Family history of hypertension 1 Last Documented On 2 8:20AM ; [facility] Family history of osteoporosis 1 Last Documented On 2 8:20AM ; [facility] Family history of rheumatoid arthritis 0 05/06/2020 Last Documented On 2 8:20AM ; [facility] Family history of thromboembolic disease 05/06/2020 Last Documented On 2 8:20AM ; [facility] Stroke / Seizures 05/06/2020 Last Documented On 2 8:20AM ; [facility] Review of Systems Includes: Review of Systems [...] Exam Includes: Physical Exam from this encounter Allergies Includes: Active Allergies Substance Type Reaction Onset Date Resolved Date Statu s Sulfa Antibiotics Allergy 05/06/2020 A ctive Last Documented On 2 1:23PM ; [facility] Septra Allergy 05/06/2020 Active Last Documented On 2 1:23PM ; [facility] Penicillins Allergy 05/06/2020 Active Last Documented On 2 1:23PM ; [facility] Encounters Encounter Provider Location Date Check-In Time Check-Out Time Diagnosis Follow Up Wade Salomon PA-C [facility] 10/14/19 22 8:14AM 9:04AM Underweight Insurance Includes: Active Insurance Policies Plan Name Member ID Group # Subscriber Relationship Effect nadira Dates 1 - [facility] [id number] Amalia Carlos Self 04/09/2021 - Unknown Clinical Notes Includes: Clinical Notes from this encounter No Clinical Notes Recorded
[2024-07-24 15:29] LABS: Basophils # 0.1 K/mm3 (0-0.2); Basophils % 0.6 % (0.1-2.0); Eosinophils # 0.1 K/mm3 (0.0-0.4); Eosinophils % 0.6 % (0.1-12.0); Hematocrit 39.9 % (37.0-47.0); Hemoglobin 13.1 g/dL (12.2-16.2); Lymphocytes # 2.5 K/mm3 (0.7-4.5); Lymphocytes % 18.3 % (10-50); Mean Corpuscular HGB Conc 32.8 g/dL (31.8-35.4); Mean Corpuscular Hemoglobin 28.9 pg (27.0-31.2); Mean Corpuscular Volume 87.9 fl (81-99); Monocytes # 0.7 K/mm3 (0.1-1.0); Monocytes % 5.3 % (1.7-9.3); Neutrophils % 74.8 % (37.0-80.0); Nucleated Red Blood Cells # 0 10^3/uL; Nucleated Red Blood Cells % 0 %; Platelet Count 357 K/mm3 (142-424); Red Blood Count 4.54 M/mm3 (4.20-5.40); Red Cell Distribution Width 13.3 % (11.5-17.5); Red Cell Distribution Width-SD 43.2 fL; White Blood Count 13.4 K/mm3 (4.8-10.8)
== END 2024-07-24 23:59 | disposition home or self-care (01) ==
LOC: LAB 15:04
PROVIDERS: PCP Family Medicine; Visit Provider Nurse Practitioner Family
DX: D64.9 Anemia, unspecified (principal)
CPT/HCPCS: 36415; 85025

== ENCOUNTER 2024-10-16 09:04 | Day surgery (SDC) | payer BC, SELFPAY ==
[2024-10-15 11:23] VITALS: BMI 38.1
[2024-10-16] MEDS: LACTATED RINGERS 1000ML 1,000 ML 50 ML IV (10:03)
[2024-10-16 10:05] VITALS: BP 109/70; PULSE 67; RESP 18; TEMP 36.2; O2SAT 98
[2024-10-16 10:16] LABS: POC Glucose,Bedside 126 (70-110)
--- NOTE | 2024-10-16 10:21 | P.PNANES_ITS ---
[facility] Disclaimer: The information contained in this section may have been updated after the patient was seen, as this information can be updated by other users. Medical History Hyperkalemia Diastolic congestive heart failure Palpitations Elevated left ventricular end-diastolic pressure (LVEDP) Diastolic dysfunction Seasonal allergies Hx of gastric ulcer High cholesterol GERD (gastroesophageal reflux disease) Gastroparesis HLD (hyperlipidemia) BABAK (obstructive sleep apnea) Chest pain HTN (hypertension) Surgical History Hx of resection of small bowel Hx of appendectomy H/O cardiac catheterization Hx of cholecystectomy H/O: hysterectomy H/O section H/O tubal ligation Family History Other No significant family history Social History Smoking Status: Never smoker second hand exposure: Yes alcohol intake: never substance use type: denies use current occupational status: employed Travel in the last 8 weeks?: None household members: family housing: house 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 current occupational exposures/hazards: No caffeine: Yes Have you lived/traveled outside [place] in past 30 days?: No Contact w/someone who lives/traveled outside [place] past 30 days?: No Exposure to someone with infectious disease in past 14 days?: No Do you have a fever (greater than 100.4 F or 38 C)?: No Have you tested positive for COVID-19?: No Exposed to someone with COVID-19 in past 14 days?: No Do you have a sore throat?: No Do you have a cough?: No Do you have any weakness?: No Do you have any diarrhea?: No Are you experiencing any unusual bleeding?: No Do you have any muscle aches/pain?: No Do you have any abdominal pain?: No Are you experiencing loss of taste or smell?: No [facility] Anesthesia Checklist Patient Identification Patient Identification: Arm Band and Verbal (Name & ) Structural Data Admitted From: Home Planned Operative Procedure/s: EGD and colonscopy Consent for Planned Operative Procedure(s) Verified: Yes Verified Documents: Surgical Consent and History and Physical NPO Status Verified Time NPO: 00:00 Additional verifications Anesthesia Reactions: No (PT STATES BLOOD PRESSURE ELEVATES) Previous Colonoscopy: Yes Airway Assessment Mallampati Score:: Class II Dentition: Good Dentition Neurological Assessment Level of Consciousness: Awake, Alert and Appropriate Hx Seizures: No Numbness or tingling in extremities: No Anesthesia Plan Anesthesia Risk discussed: Yes Anesthesia Plan: Verified ASA Class: III Anesthesia Type: MAC
--- NOTE | 2024-10-16 10:34 | EXP.HP ---
History of Present Illness *Admission Date: 10/16/24 *History of present illness: Mrs. Gonzalez is a 54-year-old female who is here to reestablish care because of her longstanding functional dyspepsia and functional bowel disease. The patient has had 2 prior bowel resections for adhesions. 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 Subsequent EGDs have shown no residual tumor. She did have negative Octreoscan and normal chromogranin A levels in 2014. The patient ran out of all of her medications in March 2024 and has been off of omeprazole, metoclopramide, buspirone and famotidine. Her nausea is markedly improved. She does get some intermittent heartburn but does not have Elkins's esophagus. She is taking the MiraLAX plus Konsyl twice daily and still struggle some with constipation and bloating. She is here to reestablish. Her last colonoscopy was February 2019 and she does have a strong family history (Father, mother and uncles with colon polyps and paternal uncle with colon cancer). Her paternal aunt had Crohn's disease. She had a paternal uncle with pancreatic cancer and a paternal uncle with esophageal cancer. She has a maternal grandmother with gastric and uterine cancer. [facility] Disclaimer: The information contained in this section may have been updated after the patient was seen, as this information can be updated by other users. Medical History Hyperkalemia Diastolic congestive heart failure Palpitations Elevated left ventricular end-diastolic pressure (LVEDP) Diastolic dysfunction Seasonal allergies Hx of gastric ulcer High cholesterol GERD (gastroesophageal reflux disease) Gastroparesis HLD (hyperlipidemia) BABAK (obstructive sleep apnea) Chest pain HTN (hypertension) Surgical History Hx of resection of small bowel Hx of appendectomy H/O cardiac catheterization Hx of cholecystectomy H/O: hysterectomy H/O section H/O tubal ligation Family History Other No significant family history Social History Smoking Status: Never smoker second hand exposure: Yes alcohol intake: never substance use type: denies use current occupational status: employed Travel in the last 8 weeks?: None household members: family housing: house 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 current occupational exposures/hazards: No caffeine: Yes Have you lived/traveled outside [place] in past 30 days?: No Contact w/someone who lives/traveled outside [place] past 30 days?: No Exposure to someone with infectious disease in past 14 days?: No Do you have a fever (greater than 100.4 F or 38 C)?: No Have you tested positive for COVID-19?: No Exposed to someone with COVID-19 in past 14 days?: No Do you have a sore throat?: No Do you have a cough?: No Do you have any weakness?: No Do you have any diarrhea?: No Are you experiencing any unusual bleeding?: No Do you have any muscle aches/pain?: No Do you have any abdominal pain?: No Are you experiencing loss of taste or smell?: No Other Medical History Have you received the Flu Vaccine for this season: Yes Have you received the Pneumonia Vaccine: Yes Review of Systems Review of Systems Review of systems (narrative): Negative *Cardiovascular Comments: Negative *Gastrointestinal Comments: Negative *Genitourinary Comments: Negative *Musculoskeletal Comments: Negative *Neurologic Comments: Negative Meds Home Medications and Allergies Home Medications ?Medication ?Instructions ?Recorded ?Confirmed ?Type cetirizine 10 mg capsule 10 mg PO DAILY ALLERGIES 05/27/18 10/15/24 History ergocalciferol (vitamin D2) 1,250 1,250 mcg PO WEEKLY Supplement 09/12/21 10/15/24 History mcg (50,000 unit) capsule ibuprofen 400 mg tablet 400 mg PO Q6HP PRN Pain 03/21/22 10/15/24 History polyethylene glycol 3350 17 17 g PO BID HELP DIGESTION 03/21/22 10/15/24 History gram/dose oral powder nitroglycerin 0.4 mg sublingual 0.4 mg sublingual Q5-15M PRN chest 03/13/23 10/15/24 Rx tablet pain or esophageal spasms #30 tabs psyllium 1 tbsp PO BID 09/06/23 10/15/24 History aspirin 81 mg tablet,delayed 81 mg PO DAILY heart health #100 09/18/23 10/15/24 Rx release tabs furosemide 80 mg tablet See Rx Instructions .Route 11/21/23 10/15/24 Rx .COMPLEX #90 tabs sertraline 50 mg tablet 50 mg PO DAILY 12/25/23 10/15/24 History atorvastatin 20 mg tablet 20 mg PO DAILY Cholesterol #90 tabs 02/25/24 10/15/24 Rx magnesium oxide 400 mg (241.3 mg See Rx Instructions .Route 04/30/24 10/15/24 Rx magnesium) tablet .COMPLEX #90 tabs metoprolol tartrate 100 mg tablet 100 mg PO BID BLOOD PRESSURE #90 06/12/24 10/15/24 Rx tabs spironolactone 100 mg tablet See Rx Instructions .Route 08/06/24 10/15/24 Rx .COMPLEX #90 tabs famotidine 40 mg tablet 40 mg PO DAILY #30 tabs 08/12/24 10/15/24 Rx linaclotide 290 mcg capsule 290 mcg PO DAILY #30 caps 08/12/24 10/15/24 Rx (Linzess) bvfsnn-[id number]-htjrpqv 1 cap PO .With meals #90 caps 08/12/24 10/15/24 Rx 36,000-114,000-180,000 unit capsule,delay rel (Creon) sodium,potassium,mag sulfates 17.5 See Rx Instructions PO .COMPLEX 09/29/24 10/15/24 Rx gram-3.13 gram-1.6 gram oral soln #354 mL (Suprep Bowel Prep Kit) New Prescriptions to Start Prescriptions: Allergies Allergy/AdvReac Type Severity Reaction Status Date / Time perfume Allergy Severe Anaphylaxis Verified 10/16/24 10:03 Penicillins Allergy Intermediate Rash Verified 10/16/24 10:03 Sulfa (Sulfonamide Allergy Mild Rash Verified 10/16/24 10:03 Antibiotics) sulfamethoxazole (From Allergy Mild Rash Verified 10/16/24 10:03 Septra) trimethoprim (From Septra) Allergy Mild Rash Verified 10/16/24 10:03 Exam Data for Last 24 hours Vital signs and Labs for Last 24 Hours: Temp Pulse Resp BP Pulse Ox O2 Del Method 97.2 F L 67 18 109/70 L 98 Room Air 10/16/24 10:05 10/16/24 10:05 10/16/24 10:05 10/16/24 10:05 10/16/24 10:05 10/16/24 10:05 Laboratory Results - last 24 hr 10/16/24 10:06: POC Glucose 126 H I & O for Last 24 hours: Intake & Output 10/13/24 10/14/24 10/15/24 10/16/24 23:59 23:59 23:59 23:59 Weight 289 lb *Routine HEENT Exam Head: Present normocephalic Eye: Present EOMI and PERRL ENT: Present mucous membranes moist *Routine Neck Exam Neck: Present supple *Routine Respiratory Exam Respiratory: Present CTA bilaterally *Routine Cardiovascular Exam Cardiovascular: Present RRR *Routine Abdominal Exam Abdominal: Present soft and normoactive bowel sounds; Absent tenderness *Routine Rectal Exam Rectal:: deferred *Routine Genitalia Exam Genitalia:: deferred *Routine Extremities Exam Extremities: Absent cyanosis, clubbing or edema *Routine Skin Exam Skin: Present warm; Absent rash *Routine Neurological Exam Neurological: Present alert and oriented X3 Assessment and Plan *Assessment and plan (1) GERD (gastroesophageal reflux disease): Status: Acute Category: Medical Code(s): K21.9 - Gastro-esophageal reflux disease without esophagitis (2) Bloating: Status: Acute Category: Medical Code(s): R14.0 - Abdominal distension (gaseous) (3) Family history of colonic polyps: Status: Acute Category: Medical Code(s): Z83.719 - Family history of colon polyps, unspecified (4) Benign carcinoid tumor of the duodenum: Status: Suspected Category: Medical Code(s): D3A.010 - Benign carcinoid tumor of the duodenum (5) Chronic idiopathic constipation: Status: Acute Category: Medical Code(s): K59.04 - Chronic idiopathic constipation (6) Anemia: Status: Acute Category: Medical Code(s): D64.9 - Anemia, unspecified Plan A/P: 1. Chronic idiopathic constipation, family history of GI cancers and strong family history of colon polyps and personal history of duodenal carcinoid is the preprocedural diagnosis. The patient will be anesthetized/sedated using MAC sedation. The patient has been seen and examined. Cardiac and lung assessment prior to the examination is stable. Proceed with planned EGD and colonoscopy.
--- NOTE | 2024-10-16 11:05 | P.PCN_ITS ---
[facility] Procedure Note Date: 10/16/24 Time: 11:13 Procedure Note:: Upper Endoscopy Procedure Report: Esophagogastroduodenoscopy with cold biopsies Endoscopost: Jhoan Diallo II, MD Referring Physician: Mark Mederos MD Date of Procedure: October 16, 2024 Equipment: Olympus GIF 190 standard upper endoscope Sedation: MAC sedation Indications: Mrs. Gonzalez is a 54-year-old female who is here for surveillance endoscopy and colonoscopy. She has had longstanding functional dyspepsia and functional bowel disease. The patient has had 2 prior bowel resections for adhesions. 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 Subsequent EGDs have shown no residual tumor. She did have negative Octreoscan and normal chromogranin A levels in 2014. The patient ran out of all of her medications in March 2024 and has been off of omeprazole, metoclopramide, buspirone and famotidine. Her nausea is markedly improved. She does get some intermittent heartburn but does not have Elkins's esophagus. She is taking the MiraLAX plus Konsyl twice daily and still struggle some with constipation and bloating. Her last colonoscopy was February 2019 and she does have a strong family history (Father, mother and uncles with colon polyps and paternal uncle with colon cancer). Her paternal aunt had Crohn's disease. She had a paternal uncle with pancreatic cancer and a paternal uncle with esophageal cancer. She has a maternal grandmother with gastric and uterine cancer. Procedure: Prior to the procedure, a history and physical exam was performed, and patient's medications and allergies were reviewed. The risks, benefits and alternatives of the sedation and procedure were discussed with the patient. All questions were answered and informed consent was obtained. The patient was brought to the procedure room. Patient identification and proposed procedure were verified by the physician and the nurse. The patient was placed in a left lateral decubitus position and the scope was passed under direct vision. Throughout the procedure, the patient's blood pressure, pulse, and oxygen saturations were monitored continuously. The upper GI endoscopy was accomplished without difficulty. The patient tolerated the procedure well. Findings: The scope was passed directly into the upper esophagus and advanced to the fourth portion of duodenum and proximal jejunum. A cold biopsy was taken from the proximal jejunum for the disaccharidase assay. The proximal jejunum, post bulbar duodenum, ampulla and duodenal bulb were normal with normal mucosa and conniventes. The scope was withdrawn through a normal duodenal bulb and pylorus into the stomach. There was bile reflux with mild to moderate linear reactive gastropathy of the antrum. The body and fundus of the stomach were normal. Upon retroflexion there was no hiatal hernia. Cold biopsies were taken from the antrum. The scope was then withdrawn into the esophagus. There was a serrated Z-line. There was no evidence of reflux esophagitis or Elkins's. There were tertiary contractions and evidence of mild esophageal dysmotility. The remainder of the esophageal mucosa was normal. Impression: 1. Nonerosive GERD with mild esophageal dysmotility 2. Bile reflux with mild to moderate linear reactive gastropathy of antrum Plan: I will follow-up the biopsies and the disaccharidase assay. There was no residual duodenal carcinoid. I will proceed with surveillance colonoscopy. I w ould continue the fiber bowel regimen (combined MiraLAX plus Konsyl).
--- NOTE | 2024-10-16 11:16 | P.PCN_ITS ---
[facility] Procedure Note Date: 10/16/24 Time: 11:28 Procedure Note:: Colonoscopy Procedure Report: Colonoscopy with cold snare polypectomy Endoscopist: Jhoan Diallo II, MD Referring physician: Mark Mederos MD Date of Procedure: October 16, 2024 Equipment: Olympus 190 variable stiffness pediatric colonoscope Sedation: MAC sedation Indication: Mrs. Gonzalez is a 54-year-old female who is here for surveillance endoscopy and colonoscopy. She has had longstanding functional dyspepsia and functional bowel disease. The patient has had 2 prior bowel resections for adhesions. 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 Subsequent EGDs have shown no residual tumor. She did have negative Octreoscan and normal chromogranin A levels in 2014. The patient ran out of all of her medications in March 2024 and has been off of omeprazole, metoclopramide, buspirone and famotidine. Her nausea is markedly improved. She does get some intermittent heartburn but does not have Elkins's esophagus. She is taking the MiraLAX plus Konsyl twice daily and still struggle some with constipation and bloating. Her last colonoscopy was February 2019 and she does have a strong family history (Father, mother and uncles with colon polyps and paternal uncle with colon cancer). Her paternal aunt had Crohn's disease. She had a paternal uncle with pancreatic cancer and a paternal uncle with esophageal cancer. She has a maternal grandmother with gastric and uterine cancer. Procedure: Prior to the procedure, a history and physical exam was performed, and patient's medications and allergies were reviewed. The risks, benefits and alternatives of the sedation and procedure were discussed with the patient. All questions were answered and informed consent was obtained. The patient was brought to the procedure room. Patient identification and proposed procedure were verified by the physician and the nurse. The patient was placed in a left lateral decubitus position and the scope was passed under direct vision. Throughout the procedure, the patient's blood pressure, pulse, and oxygen saturations were monitored continuously. The colonoscopy was accomplished without difficulty. The patient tolerated the procedure well. Findings: On digital rectal examination there was normal rectal tone. There were no external hemorrhoids. The colonoscope was introduced through the anal canal to the rectum and advanced to the cecum. The ileocecal valve and appendiceal orifice were identified. The scope was advanced a short distance into the ileum which appeared grossly normal. The scope was then withdrawn into the colon. There was very mild melanosis coli. The cecum, ascending and transverse colon and mucosa were grossly normal. There were scattered diverticuli throughout the descending and sigmoid colon (LEFT colon). There was a diminutive 2 mm polyp in the rectosigmoid removed via cold snare polypectomy (hyperplastic polyp removed but not retrieved). The rectum itself was normal. Upon retroflexion within the rectum there were grade 1-2 internal hemorrhoids. The preparation was excellent throughout with [place] Preparation Score of 9. The cecal time was 12 minutes. Impression: 1. Mild melanosis coli 2. Diminutive 2 mm hyperplastic rectosigmoid polyp 3. Mild left-sided diverticulosis 4. Grade 1-2 internal hemorrhoids Plan: Based upon the patient's strong family history, I would repeat surveillance colonoscopy again in 5 years. I would continue the fiber bowel regimen (combined MiraLAX plus Konsyl).
[2024-10-16 11:30] VITALS: BP 90/53; PULSE 69; RESP 16; TEMP 36.1; O2SAT 95
[2024-10-16 11:40] VITALS: BP 97/57; PULSE 66; RESP 18; TEMP 36.1; O2SAT 96
[2024-10-16 11:50] VITALS: BP 108/53; PULSE 62; RESP 18; TEMP 36.1; O2SAT 97
[2024-10-16 12:00] VITALS: BP 116/55; PULSE 64; RESP 18; TEMP 36.1; O2SAT 97
[2024-10-21 16:12] LABS: Interpretation Notes (.); Lactase 45.56 (>/= 14.0); Maltase 305.32 (>/= 110.0); Palatinase 37.06 (>/= 8.5); Reference Notes (.); Sucrase 161.91 (>/= 25.0)
== END 2024-10-16 12:05 | disposition home or self-care (01) ==
PROVIDERS: PCP Family Medicine; Visit Provider Internal Medicine Gastroenterology
PROC: 0DJ08ZZ Inspection of Upper Intestinal Tract, Via Natural or Artificial Opening Endoscopic (ICD-10-PCS; CPT 45378; principal; 2024-10-16 11:00)
DX: K21.9 Gastro-esophageal reflux disease without esophagitis (principal); K22.4 Dyskinesia of esophagus; K29.50 Unspecified chronic gastritis without bleeding; K31.89 Other diseases of stomach and duodenum; K30 Functional dyspepsia; K57.30 Diverticulosis of large intestine without perforation or abscess without bleeding; K63.5 Polyp of colon; K64.0 First degree hemorrhoids; K64.1 Second degree hemorrhoids; D3A.010 Benign carcinoid tumor of the duodenum; K59.04 Chronic idiopathic constipation; D64.9 Anemia, unspecified; I11.0 Hypertensive heart disease with heart failure; I50.30 Unspecified diastolic (congestive) heart failure; E78.5 Hyperlipidemia, unspecified; Z79.82 Long term (current) use of aspirin; Z90.5 Acquired absence of kidney; Z90.49 Acquired absence of other specified parts of digestive tract; Z88.2 Allergy status to sulfonamides; Z88.0 Allergy status to penicillin; Z85.068 Personal history of other malignant neoplasm of small intestine; Z80.0 Family history of malignant neoplasm of digestive organs; Z83.719 Family history of colon polyps, unspecified; Z88.1 Allergy status to other antibiotic agents
CPT/HCPCS: 43239; 45385; 82657; 82962; J2003; J2704; J7120

== ENCOUNTER 2024-12-30 15:30 | Outpatient (CLI) | payer BC, SELFPAY ==
--- OUTSIDE RECORDS SUMMARY | 2024-11-18 10:00 | XMS_ITS | Encounter Summary ---
Author Organization [facility] Address [address] [place] [address] Care Team Providers Care Rn Iv Therapy Name Role Phone Mark Mederos MD Primary Care Provider Reason for Referral * Consultation (Routine) - Pending Review Specialty Diagnoses / Procedures Referred By Chilango santana Referred To Contact Diagnoses Multiple thyroid nodules Tommie Garrison MD [address] [address] Phone: tel: fax: Referral ID Status Reason Start Date Expiration Date V isits Requested Visits Authorized [id number] Pending Review 11/18/2024 05/20/2026 1 1 Reason for Visit * Consultation (Routine) - Closed Specialty Diagnoses / Procedures Referred By Chilango santana Referred To Contact Endocrinology Diagnoses Tumor, thyroid Maico Gillespie MD [address] [address] Phone: tel: fax: Referral ID Status Reason Start Date Expiration Date V isits Requested Visits Authorized [id number] Closed Specialty Services Required 07/22/2024 01/21/2026 1 1 Encounter Details Date Type Department Care Team (Late st Contact Info) Description 11/18/2024 10:00 AM EDT Office Visit Jus[facility]aniela [facility] Endocrinology [place] [address] Tommie Garrison MD [address] [address] Multiple thyroid nodules (Primary Dx) [...] drink first t deepali in the morning (EYE-SOLE ROUGHER) to steady your nerves or to get [...] ov. Electronically signed by: Tommie Garrison MD [facility] ENDOCRINOLOGY [address] [place] [address]. [address] [place]. [address] PHONE [phone] FAX: [phone] documented in this encounter Plan of Treatment Upcoming Encounters Date Type Department Care Team (Late st Contact Info) Description 11/19/2025 8:00 AM EDT Office Visit Long [facility] Endocrinology [address] [place] [address] Tommie Garrison MD [address] [place] [address] Scheduled Referrals Name Type Priority Associated Diagnoses Orde r Schedule Follow Up [facility] Outpatient Referral Routine Multiple thyroid nodules Expected: [...] documented as of this encounter Care Teams Rn Iv Therapy Relationship Specialty Start Date End Date Mark Mederos MD [address] [place] [address] PCP - General 05/24/21 documented as of this encounter
--- OUTSIDE RECORDS SUMMARY | 2024-12-30 15:32 | XMS_ITS | Clinical Summary ---
Author Organization [facility] Address [address] [place] [address] Care Team Providers Care [employer]auger Name Role Phone Mark Mederos MD Primary Care Provider [phone] Allergies Active Allergy Reactions Criticality Noted Date Comments Penicillins 03/30/2017 Sulfamethoxazole-Trimethoprim 2016 Medications lisinopril (PRINIVIL,ZESTR IL) 20 MG tablet Take 20 mg by mouth Daily. Active sucralfate (CARAFATE) 1 g tablet Take 1 g by mouth 4 (Four) Times a Day. Active cetirizine (zyrTEC) 10 MG tablet Take 10 mg by mouth Daily. Active gemfibrozil (LOPID) 600 MG tablet Take 600 mg by mouth 2 (Two) Times a Day Before Meals. Active aspirin EC 325 MG tablet Take 325 mg by mouth Daily. Active polyethylene glycol (MIRALAX) packet Take 17 g by mouth Daily. Active omeprazole (priLOSEC) 40 MG capsule Take 40 mg by mouth Daily. Active icosapent ethyl (VASCEPA) 1 g capsule capsule Take 1 g by mouth 2 (Two) Times a Day With Meals. Active Psyllium (METAMUCIL FIBER PO) Take 1 capsule by mouth Daily. Active atorvastatin (LIPITOR) 10 MG tablet Take 10 mg by mouth Daily. Active metoprolol tartrate (LOPRESSOR) 100 MG tablet Take 100 mg by mouth Daily. Active Active Problems Problem Noted Date Diagnosed Date Abnormal stress test 03/29/2017 Overview (03/29/2017): Added automatically from request for surgery [id number] Encounters Date Type Department Care Team Description 10/15/2024 11:30 AM EDT Lab [facility] [address] [place] [address] Personal history of other malignant neoplasm of small intestine; Family history of colonic polyps; Genetic testing 10/15/2024 Travel 10/01/2024 Telephone [facility] [address] [place] [id number] Lata Rodgers RN 09/29/2024 12:51 PM EDT - 09/29/2024 11:59 PM EDT Hospital Encounter [facility] [address] [place] [address] Abnormal mammogram Discharge Disposition: Home or Self Care 09/29/2024 12:44 PM EDT - 09/29/2024 11:59 PM EDT Hospital Encounter [facility] [address] [place] [address] Abnormal mammogram Discharge Disposition: Home or Self Care 09/29/2024 12:35 PM EDT - 09/29/2024 11:59 PM EDT Hospital Encounter [facility] [place] [address] [place] [address] Abnormal mammogram Discharge Disposition: Home or Self Care 09/29/2024 12:34 PM EDT - 09/29/2024 11:59 PM EDT Hospital Encounter [facility] [address] [place] [address] Abnormal mammogram Discharge Disposition: Home or Self Care 09/29/2024 Travel from Last 3 Months Family History Medical History Relation Name Comments Heart attack Father Breast cancer Maternal Aunt Heart disease Mother Breast cancer Paternal Aunt Endometrial cancer Neg Hx Ovarian cancer Neg Hx Relation Name Status Comments Father Maternal Aunt Mother Paternal Aunt Social History Tobacco Use Types Packs/Day Years Used Date Smoking Tobacco: Never Smokeless Tobacco: Never Alcohol Use Standard Drinks/Week Comments Yes 0 (1 standard drink = 0.6 oz pur e alcohol) social Comments No Sex and Gender Information Value Date Recorded Sex Assigned at Not on file Legal Sex Female 12:39 PM EDT Gender Identity Not on file Sexual Orientation Not on file Last Filed Vital Signs Vital Sign Reading Time Taken Comments Blood Pressure 115/72 03/30/2017 2:45 PM EST Pulse 72 03/30/2017 2:45 PM EST Temperature 37.1 C (98.7 F) 03/30/2017 9:15 AM EST Respiratory Rate 16 03/30/2017 11:39 AM EST Oxygen Saturation 99% 03/30/2017 2:45 PM EST Inhaled Oxygen Concentration - - Weight 143 kg (315 lb) 11/17/2021 4:43 PM EDT Height 185.4 cm (6' 1 ) 11/17/2021 4:43 PM EDT Body Mass Index 41.56 11/17/2021 4:43 PM EDT Plan of Treatment Health Maintenance Due Date Last Done Comments Hepatitis B (1 of 3 - 19+ 3- dose series) 01/24/1987 TDAP/TD VACCINES (2 - Tdap) 01/06/2013 01/06/2003 COLOGUARD 01/24/2013 COLON CANCER SCREENING 5 YEA R SIGMOIDOSCOPY 01/24/2013 COLONOSCOPY 01/24/2013 COLORECTAL CANCER SCREENING 01/24/2013 CT COLONOGRAPHY 01/24/2013 FECAL OCCULT BLOOD TEST 01/24/2013 FIT Testing (1 year) 01/24/2013 Annual Gynecologic Pelvic an d Breast Exam 06/25/2014 06/24/2013 ANNUAL PHYSICAL 03/29/2017 HEPATITIS C SCREENING 03/29/2017 Pneumococcal Vaccine 50+ (2 of 2 - PCV) 01/08/2020 01/07/2019 INFLUENZA VACCINE 11/07/2024 01/28/2024, , 01/24/2022, Additional history exists MAMMOGRAM 09/09/2026 09/09/2024, 05/2 06/2024, 07/07/2014, Additional history exists ZOSTER VACCINE Completed 04/15/2020, 02/13/2020 Medical Devices Implanted Type Area Lace Sewer Device Identifier Shelf Expiration Date Model / Serial / Lot Implant Implant 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 Bone Implant 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 Bone Description:implant in mouth Procedures Procedure Name Priority Date/Time Associated Diagnosis Comments AMBRY CANCERNEXT+RNAINSIGHT Routine 10/15/2024 11:29 AM EDT Personal history of other malignant neoplasm of small intestine Family history of colonic polyps Genetic testing MAMMO POST DEVICE PLACEMENT LEFT Routine 09/29/2024 2:17 PM EDT Abnormal mammogram MAMMO POST DEVICE PLACEMENT RIGHT Routine 09/29/2024 2:14 PM EDT Abnormal mammogram US GUIDED CYST ASPIRATION BREAST Routine 09/29/2024 2:05 PM EDT Abnormal mammogram MAMMO STEREOTACTIC BREAST BIOPSY INITIAL W WO DEVICE Routine 09/29/2024 2:03 PM EDT Abnormal mammogram TISSUE PATHOLOGY EXAM Routine 09/29/2024 2:01 PM EDT MAMMO DIAGNOSTIC DIGITAL TOMOSYNTHESIS BILATERAL W CAD Routine 09/09/2024 10:02 AM EDT Abnormal mammogram SCANNED - PAP SMEAR 06/24/2013 from Last 3 Months or Most Recently Relevant to Health Maintenance Results * [facility] My plate CancerNext+RNAInsight - Blood, (10/15/2024 11:29 AM EDT) Overall Interpretation NEGATIVE: No Clinically Significant Variants Detected 10/30/2024 7:27 PM EDT [facility] Interpretation Report See Notes^^LN 10/30/2024 7:27 PM EDT [facility] Comment:Kevry Report Blood Venipuncture / Unknown 10/15/2024 11:29 AM EDT 10/15/2024 11:29 AM EDT Mark Mederos MD GENETIC TESTING Final Result [facility]
[address] [place] [address], [place] [phone] * Mammo Post Device Placement Left (09/29/2024 2:17 PM EDT) Anatomical Region Laterality Modality Breast Left Mammography 09/29/2024 3:29 PM EDT Addenda Addendum by Kathie Pulliam MD on 10/02/2024 2:22 PM EDT Pathology is now available for the recently performed biopsy and is as follows: Left breast: Upper outer quadrant, calcifications, stoplight clip: Fibrocystic changes stromal fibrosis, small cyst formation and focal secretory/lactational change. No atypia identified. Calcifications present associated fibrocystic change. This benign pathology is considered concordant with the imaging findings. Recommend continued routine annual screening mammogram. Results and recommendations were called to the patient by the breast care nurse. 10/02/2024 2:22 PM by Kathie Pulliam MD on Impressions 09/29/2024 3:34 PM EDT 1. Technically successful stereotactic/tomosynthesis guided vacuum assisted core biopsy of calcifications located in the upper outer quadrant of the left breast. Pathology results are pending. 2. Successful ultrasound-guided right breast cyst aspiration. Patient can return to right breast screening. 09/29/2024 3:34 PM by Kathie Pulliam MD on Narrative 09/29/2024 3:34 PM EDT EXAM: 9 gauge Brevera VACUUM ASSISTED STEREOTACTIC/TOMOSYNTHESIS GUIDED BIOPSY: AFFIRM, left upper outer quadrant, specimen radiograph, post clip left mammogram, ultrasound-guided right breast cyst aspiration, post aspiration right mammogram. HISTORY: 54-year-old female who presents for stereotactic left breast biopsy of calcifications in the upper outer quadrant of the left breast as well as ultrasound-guided right breast cyst aspiration, 4:00 region. PROCEDURE: Site A: Left breast, upper outer quadrant, calcifications, stoplight clip: The procedure was explained to the patient. Written and verbal consent was obtained for stereotactic biopsy/tomosynthesis guided biopsy of the left breast upper outer quadrant calcifications. Time-out was observed to verify patient's identity and correct location of the breast abnormality. The patient was placed on the prone on the tomographic/stereotactic core biopsy table and adolescent psychiatrist images were obtained. The area undergoing biopsy was identified and targeted. The breast was sterilized with chloraprep and 1% lidocaine with (4 cc) and without (5 cc) epinephrine was utilized for local anesthesia. A small skin incision was made with a scalpel and a 9 gauge Brevera biopsy probe was advanced into the breast. The position of the needle was confirmed with tomosynthesis/stereotactic images. A total of 7 core samples were obtained at the biopsy site. Specimen radiograph demonstrated calcifications contained within the sample. A stoplight shaped biopsy marker clip was placed. Pressure was held hemostasis was obtained. A sterile bandage was applied. Post procedure mammogram demonstrated biopsy marker clip in the expected location. Site B: Right breast, 4:00, cyst aspiration: The procedure was explained to the patient. Written and verbal consent was. A timeout was performed. Preprocedure ultrasound was performed and confirmed the finding. The breast was prepped and draped in the usual sterile fashion. Local anesthesia was obtained with 2 mL of 1% lidocaine. An 18-gauge needle was inserted and into the mass under direct sonographic guidance. The cyst collapsed. Several drops of serous fluid were aspirated and discarded. Pressure was held until hemostasis was obtained. A sterile bandage was applied. Post procedure mammogram demonstrated resolution of the original mammographic finding and minimal postprocedure change. Post procedure instructions were reviewed with the patient by our clinical breast imaging staff. A written copy of these instructions was also given to the patient. The patient tolerated the procedures well and no immediate complications occurred. Kathie Pulliam MD IMG MAMMOGRAPHY [facility] Edited Result - Final * Mammo Post Device Placement Right (09/29/2024 2:14 PM EDT) Anatomical Region Laterality Modality Breast Right Mammography 09/29/2024 3:29 PM EDT Addenda Addendum by Kathie Pulliam MD on 10/02/2024 2:22 PM EDT Pathology is now available for the recently performed biopsy and is as follows: Left breast: Upper outer quadrant, calcifications, stoplight clip: Fibrocystic changes stromal fibrosis, small cyst formation and focal secretory/lactational change. No atypia identified. Calcifications present associated fibrocystic change. This benign pathology is considered concordant with the imaging findings. Recommend continued routine annual screening mammogram. Results and recommendations were called to the patient by the breast care nurse. 10/02/2024 2:22 PM by Kathie Pulliam MD on Impressions 09/29/2024 3:34 PM EDT 1. Technically successful stereotactic/tomosynthesis guided vacuum assisted core biopsy of calcifications located in the upper outer quadrant of the left breast. Pathology results are pending. 2. Successful ultrasound-guided right breast cyst aspiration. Patient can return to right breast screening. 09/29/2024 3:34 PM by Kathie Pulliam MD on Narrative 09/29/2024 3:34 PM EDT EXAM: 9 gauge Brevera VACUUM ASSISTED STEREOTACTIC/TOMOSYNTHESIS GUIDED BIOPSY: AFFIRM, left upper outer quadrant, specimen radiograph, post clip left mammogram, ultrasound-guided right breast cyst aspiration, post aspiration right mammogram. HISTORY: 54-year-old female who presents for stereotactic left breast biopsy of calcifications in the upper outer quadrant of the left breast as well as ultrasound-guided right breast cyst aspiration, 4:00 region. PROCEDURE: Site A: Left breast, upper outer quadrant, calcifications, stoplight clip: The procedure was explained to the patient. Written and verbal consent was obtained for stereotactic biopsy/tomosynthesis guided biopsy of the left breast upper outer quadrant calcifications. Time-out was observed to verify patient's identity and correct location of the breast abnormality. The patient was placed on the prone on the tomographic/stereotactic core biopsy table and adolescent psychiatrist images were obtained. The area undergoing biopsy was identified and targeted. The breast was sterilized with chloraprep and 1% lidocaine with (4 cc) and without (5 cc) epinephrine was utilized for local anesthesia. A small skin incision was made with a scalpel and a 9 gauge Brevera biopsy probe was advanced into the breast. The position of the needle was confirmed with tomosynthesis/stereotactic images. A total of 7 core samples were obtained at the biopsy site. Specimen radiograph demonstrated calcifications contained within the sample. A stoplight shaped biopsy marker clip was placed. Pressure was held hemostasis was obtained. A sterile bandage was applied. Post procedure mammogram demonstrated biopsy marker clip in the expected location. Site B: Right breast, 4:00, cyst aspiration: The procedure was explained to the patient. Written and verbal consent was. A timeout was performed. Preprocedure ultrasound was performed and confirmed the finding. The breast was prepped and draped in the usual sterile fashion. Local anesthesia was obtained with 2 mL of 1% lidocaine. An 18-gauge needle was inserted and into the mass under direct sonographic guidance. The cyst collapsed. Several drops of serous fluid were aspirated and discarded. Pressure was held until hemostasis was obtained. A sterile bandage was applied. Post procedure mammogram demonstrated resolution of the original mammographic finding and minimal postprocedure change. Post procedure instructions were reviewed with the patient by our clinical breast imaging staff. A written copy of these instructions was also given to the patient. The patient tolerated the procedures well and no immediate complications occurred. us Mark Mederos MD IMG MAMMOGRAPHY ORDERABLES Ed ited Result - Final * US Guided Cyst Aspiration Breast (09/29/2024 2:05 PM EDT) Anatomical Region Laterality Modality Breast N/A Ultrasound Fine Needle Aspirate 09/29/2024 3:29 PM EDT Addenda Addendum by Kathie Pulliam MD on 10/02/2024 2:22 PM EDT Pathology is now available for the recently performed biopsy and is as follows: Left breast: Upper outer quadrant, calcifications, stoplight clip: Fibrocystic changes stromal fibrosis, small cyst formation and focal secretory/lactational change. No atypia identified. Calcifications present associated fibrocystic change. This benign pathology is considered concordant with the imaging findings. Recommend continued routine annual screening mammogram. Results and recommendations were called to the patient by the breast care nurse. 10/02/2024 2:22 PM by Kathie Pulliam MD on Impressions 09/29/2024 3:34 PM EDT 1. Technically successful stereotactic/tomosynthesis guided vacuum assisted core biopsy of calcifications located in the upper outer quadrant of the left breast. Pathology results are pending. 2. Successful ultrasound-guided right breast cyst aspiration. Patient can return to right breast screening. 09/29/2024 3:34 PM by Kathie Pulliam MD on Narrative 09/29/2024 3:34 PM EDT EXAM: 9 gauge Brevera VACUUM ASSISTED STEREOTACTIC/TOMOSYNTHESIS GUIDED BIOPSY: AFFIRM, left upper outer quadrant, specimen radiograph, post clip left mammogram, ultrasound-guided right breast cyst aspiration, post aspiration right mammogram. HISTORY: 54-year-old female who presents for stereotactic left breast biopsy of calcifications in the upper outer quadrant of the left breast as well as ultrasound-guided right breast cyst aspiration, 4:00 region. PROCEDURE: Site A: Left breast, upper outer quadrant, calcifications, stoplight clip: The procedure was explained to the patient. Written and verbal consent was obtained for stereotactic biopsy/tomosynthesis guided biopsy of the left breast upper outer quadrant calcifications. Time-out was observed to verify patient's identity and correct location of the breast abnormality. The patient was placed on the prone on the tomographic/stereotactic core biopsy table and adolescent psychiatrist images were obtained. The area undergoing biopsy was identified and targeted. The breast was sterilized with chloraprep and 1% lidocaine with (4 cc) and without (5 cc) epinephrine was utilized for local anesthesia. A small skin incision was made with a scalpel and a 9 gauge Brevera biopsy probe was advanced into the breast. The position of the needle was confirmed with tomosynthesis/stereotactic images. A total of 7 core samples were obtained at the biopsy site. Specimen radiograph demonstrated calcifications contained within the sample. A stoplight shaped biopsy marker clip was placed. Pressure was held hemostasis was obtained. A sterile bandage was applied. Post procedure mammogram demonstrated biopsy marker clip in the expected location. Site B: Right breast, 4:00, cyst aspiration: The procedure was explained to the patient. Written and verbal consent was. A timeout was performed. Preprocedure ultrasound was performed and confirmed the finding. The breast was prepped and draped in the usual sterile fashion. Local anesthesia was obtained with 2 mL of 1% lidocaine. An 18-gauge needle was inserted and into the mass under direct sonographic guidance. The cyst collapsed. Several drops of serous fluid were aspirated and discarded. Pressure was held until hemostasis was obtained. A sterile bandage was applied. Post procedure mammogram demonstrated resolution of the original mammographic finding and minimal postprocedure change. Post procedure instructions were reviewed with the patient by our clinical breast imaging staff. A written copy of these instructions was also given to the patient. The patient tolerated the procedures well and no immediate complications occurred. us Mark Mederos MD [facility] US ORDERABLES Edited Resu lt - Final * Mammo Stereotactic Breast Biopsy Initial With & Without Device (09/29/2024 2:03 PM EDT) Anatomical Region Laterality Modality Breast N/A Other 09/29/2024 3:29 PM EDT Addenda Addendum by Kathie Pulliam MD on 10/02/2024 2:22 PM EDT Pathology is now available for the recently performed biopsy and is as follows: Left breast: Upper outer quadrant, calcifications, stoplight clip: Fibrocystic changes stromal fibrosis, small cyst formation and focal secretory/lactational change. No atypia identified. Calcifications present associated fibrocystic change. This benign pathology is considered concordant with the imaging findings. Recommend continued routine annual screening mammogram. Results and recommendations were called to the patient by the breast care nurse. 10/02/2024 2:22 PM by Kathie Pulliam MD on Impressions 09/29/2024 3:34 PM EDT 1. Technically successful stereotactic/tomosynthesis guided vacuum assisted core biopsy of calcifications located in the upper outer quadrant of the left breast. Pathology results are pending. 2. Successful ultrasound-guided right breast cyst aspiration. Patient can return to right breast screening. 09/29/2024 3:34 PM by Kathie Pulliam MD on Narrative 09/29/2024 3:34 PM EDT EXAM: 9 gauge Brevera VACUUM ASSISTED STEREOTACTIC/TOMOSYNTHESIS GUIDED BIOPSY: AFFIRM, left upper outer quadrant, specimen radiograph, post clip left mammogram, ultrasound-guided right breast cyst aspiration, post aspiration right mammogram. HISTORY: 54-year-old female who presents for stereotactic left breast biopsy of calcifications in the upper outer quadrant of the left breast as well as ultrasound-guided right breast cyst aspiration, 4:00 region. PROCEDURE: Site A: Left breast, upper outer quadrant, calcifications, stoplight clip: The procedure was explained to the patient. Written and verbal consent was obtained for stereotactic biopsy/tomosynthesis guided biopsy of the left breast upper outer quadrant calcifications. Time-out was observed to verify patient's identity and correct location of the breast abnormality. The patient was placed on the prone on the tomographic/stereotactic core biopsy table and adolescent psychiatrist images were obtained. The area undergoing biopsy was identified and targeted. The breast was sterilized with chloraprep and 1% lidocaine with (4 cc) and without (5 cc) epinephrine was utilized for local anesthesia. A small skin incision was made with a scalpel and a 9 gauge Brevera biopsy probe was advanced into the breast. The position of the needle was confirmed with tomosynthesis/stereotactic images. A total of 7 core samples were obtained at the biopsy site. Specimen radiograph demonstrated calcifications contained within the sample. A stoplight shaped biopsy marker clip was placed. Pressure was held hemostasis was obtained. A sterile bandage was applied. Post procedure mammogram demonstrated biopsy marker clip in the expected location. Site B: Right breast, 4:00, cyst aspiration: The procedure was explained to the patient. Written and verbal consent was. A timeout was performed. Preprocedure ultrasound was performed and confirmed the finding. The breast was prepped and draped in the usual sterile fashion. Local anesthesia was obtained with 2 mL of 1% lidocaine. An 18-gauge needle was inserted and into the mass under direct sonographic guidance. The cyst collapsed. Several drops of serous fluid were aspirated and discarded. Pressure was held until hemostasis was obtained. A sterile bandage was applied. Post procedure mammogram demonstrated resolution of the original mammographic finding and minimal postprocedure change. Post procedure instructions were reviewed with the patient by our clinical breast imaging staff. A written copy of these instructions was also given to the patient. The patient tolerated the procedures well and no immediate complications occurred. Kathie Pulliam MD IM MAMMOGRAPHY [facility] Edited Result - Final * Tissue Pathology Exam (09/29/2024 2:01 PM EDT) Case Report Surgical Pathology Report Case: [id number] Authorizing Provider: Kathie Pulliam, Collected: 09/29/2024 02:01 PM Ordering Location: [facility] Received: 09/30/2024 06:28 AM MAMMOGRAPHY [place] Pathologist: Abhijeet Yin MD Specimen: Breast, Left, L UOQ calcs 7 samples stoplight 10/01/2024 1:35 PM EDT [facility] Clinical Information L UOQ calcs 7 samples stoplight 10/01/2024 1:35 PM EDT [facility] Final Diagnosis LEFT BREAST, UPPER OUTER QUADRANT, STEREOTACTIC-GUIDE D BIOPSY: Fibrocystic change with stromal fibrosis, small cyst formation and focal secretory/lactatio nal change. No atypia identified. Calcifications present associated with fibrocystic change. 10/01/2024 1:35 PM EDT [facility] at 1335 EDT Gross Description 1. Breast, Left. Received in formalin in a clear plastic collection device labeled L UOQ calcs 7 samples is a left affirm stereotactic biopsy consisting of a 3.5 x 2 x 0.3 cm aggregate of fibrofatty breast tissue cores. The tissue designated with calcifications is submitted entirely in block 1A and the tissue without calcifications is submitted entirely in block 1B. Time in formalin: 1401 on 09/29/2024. Cold ischemic time is less than 60 minutes and total time in formalin is greater than 6 and less than 72 hours. LDP 10/01/2024 1:35 PM EDT [facility] Microscopic Description The slides are reviewed and demonstrate histopathologic features supporting the above rendered diagnosis. 10/01/2024 1:35 PM EDT [facility] Tissue Left breast structure / Unknown Collection / Unknown 09/29/2024 2:01 PM EDT 09/30/2024 6:28 AM EDT Kathie Pulliam MD PATHOLOGY/CYTOLOGY O RDERABLES Final Result [facility]
[address] [place] [address], * (ABNORMAL) Mammo Diagnostic Digital Tomosynthesis Bilateral With CAD (09/09/2024 10:02 AM EDT) Anatomical Region Laterality Modality Breast Bilateral Mammography 09/09/2024 9:46 AM EDT Impressions 09/09/2024 10:44 AM EDT 1. Right breast: Probable minimally complicated cyst in the 4:00 right breast. Recommend attempted cyst aspiration to ensure complete resolution. If this does not resolve, biopsy can subsequently be performed. Benign fibrocystic change in the upper outer quadrant of the right breast. 2. Left breast: Indeterminate calcifications in the upper outer quadrant of the left breast. Recommend stereotactic left breast biopsy. 3. Today's findings and recommendations were discussed with the patient at the time of the examination by myself. OVERALL ASSESSMENT: BI-RADS Category 4: Suspicious, biopsy is recommended. Physicians Order Ultrasound-guided right breast cyst aspiration with biopsy if does not resolve. Stereotactic left breast biopsy. Diagnosis: Abnormal Mammogram 09/09/2024 10:44 AM by Kathie Pulliam MD on Narrative 09/09/2024 10:44 AM EDT EXAM: MAMMO DIAGNOSTIC DIGITAL TOMOSYNTHESIS BILATERAL W CAD, Limited right breast ultrasound- DATE:09/09/2024 9:42 AM INDICATION: 34-year-old female who presents for diagnostic work-up of asymmetries in the right breast as well as diagnostic evaluation of calcifications in the left breast on baseline screening mammogram. Maternal aunt and paternal aunt with history of breast cancer. COMPARISON: Exam is compared to prior studies dating back to 08/29/2024. TECHNIQUE: 2D/3D spot right CC and MLO views as well as 2D/3D right true lateral. Additionally, magnification right CC and ML views and 2D/3D left true lateral was obtained. FINDINGS: There are scattered areas of fibroglandular density. Right breast: Focal asymmetry in the 3/4:00 right breast persists on today's spot compression imaging. Similar-appearing subcentimeter low-density asymmetries in the upper outer quadrant of the right breast at middle to posterior depth persist on today's spot compression right CC localizing to the 10:00/11:00 region. Left breast: Tightly grouped indeterminate calcifications are noted in the upper outer quadrant of the left breast. Targeted sonographic imaging of the right breast was performed by the technologist and myself. In the 4:00 right breast 4 cm from the nipple there is a circumscribed oval to round nearly anechoic mass measuring up to 5 mm. Margins are slightly indistinct on some of the images. This is favored to represent a minimally complicated cyst. This correlates with the mammographic finding. Sonographic imaging of the upper outer quadrant the right breast demonstrates multiple similar-appearing subcentimeter anechoic benign cyst and cluster cyst about the 11:00 right breast 7 cm from the nipple. On a graphic appear correlates with the mammographic findings. No suspicious abnormality is identified. us Alma Rosa Naik MD IMG MAMMOGRAPHY ORDERABLES Fin al Result * SCANNED - PAP SMEAR (06/24/2013) Zak Alfaro MD CHART REVIEW TABS Final Resul t from Last 3 Months or Most Recently Relevant to Health Maintenance Insurance [employer] Care Teams Tank Farm Gauger Relationship Specialty Start Date End Date Mark Mederos MD [address] [place], [place] [address] [place] [address] PCP - General Family Medicine 03/30/17
--- OUTSIDE RECORDS SUMMARY | 2024-12-30 15:32 | XMS_ITS | Encounter Summary ---
Author Organization Healthcare Address [address] [place] [address] Care Team Providers Care Wool Hat Forming Machine Tender Name Role Phone Mark Mederos MD Primary Care Provider [phone] Encounter Details Date Type Department Care Team (Late st Contact Info) Description 11/18/2024 Orders Only External Location [address] [place] [address] Provider, External Social History Tobacco Use Types Packs/Day Years [...] drink first t deepali in the morning (EYE-CONDUIT MECHANIC) to steady your nerves or to get [...] on file documented as of this encounter Functional Status * Over the past 2 weeks, how often have you been bothered by any of the following problems? Question Answer Date of Assessment Author Little interest or pleasure in doing things Not at all 11/18/2024 9:47 AM EDT Levon Thibodeaux Feeling down, depressed, or hopeless Not at all 11/18/2024 9:47 AM EDT Levon Thibodeaux Patient Health Questionnaire -2 Score 0 11/18/2024 9:47 AM EDT Levon Thibodeaux documented as of this encounter Plan of Treatment Upcoming Encounters Date Type Department Care Team (Late st Contact Info) Description 11/19/2025 8:00 AM EDT [facility] [address] [place] [phone] Tommie Garrison MD [address] [facility] [address] [place] [phone] documented as of this encounter Goals Goal Patient Goal Type Associated Problems Recent Progress Patient-Stated? Author LTG: Patient will decrease Quick DASH score to 20% or less demonstrating less perceived impairment due to upper limb condition. Occupational Therapy On track(2022 3:55 PM EDT) No Dede Sevilla documented as of this encounter Procedures Procedure Name Priority Date/Time Associated Diagnosis Comments POC ULTRASOUND 11/18/2024 documented in this encounter Results * POC Imaging (11/18/2024) Anatomical Region Laterality Modality Pelvis Other 11/18/2024 us External Provider IMG POINT OF CARE ULTRASOUND F inal Result documented in this encounter Visit Diagnoses Not on filedocumented in this encounter Additional Health Concerns Assessment Noted Time A fall risk assessment has been complete d for the patient 11/18/2024 9:47 AM EDT A Body Mass Index follow-up plan has been documented for the patient 11/18/2024 9:54 PM EDT documented as of this encounter Care Teams Wool Hat Forming Machine Tender Relationship Specialty Start Date End Date Mark Mederos MD [address] [place] [address] PCP - General 05/24/21 documented as of this encounter
--- OUTSIDE RECORDS SUMMARY | 2024-12-30 15:32 | XMS_ITS | Clinical Summary ---
Author Organization [facility] Address [address] [place] [address] Care Team Providers Care Supervisor Drying And Winding Name Role Phone Mark Mederos MD Primary Care Provider [phone] Allergies Active Allergy Reactions Criticality Noted Date Comments Penicillins Anaphylaxis High 05/24/2021 Tolerated cephalexin October 2022 Sorbitan Rash Low 03/04/2013 Sulfa Drugs Anaphylaxis High 05/24/2021 Sulfacetamide Rash Low 03/04/2013 Medications metoprolol tartrate (Lopressor) 100 MG tablet Take 1 tablet (100 mg) by mouth 2 (two) times a day. 2 Active busPIRone (Buspar) 10 MG tablet Take 1 tablet (10 mg) by mouth 2 (two) times a day. 2 Active spironolactone (Aldactone) 100 MG tablet Take 1 tablet (100 mg) by mouth 1 (one) time each day. 2 Active polyethylene glycol (Miralax) 17 g packet Take 17 g by mouth 2 (two) times a day. Active psyllium (Metamucil) 58.6 % powder Active lisinopril 20 MG tablet Lisinopril 20 MG Oral Tablet QTY: 90 Days: 90 Refills: 0 Written: 06/18/21 Patient Instructions: 2 Active metoclopramide (Reglan) 10 MG tablet TAKE 1 TABLET BY MOUTH 4 TIMES DAILY BEFORE MEAL(S) AND AT BEDTIME 2 Active omeprazole (PriLOSEC) [address] capsule Omeprazole 40 MG Oral Capsule Delayed Release QTY: 90 Days: 90 Refills: 0 Written: 07/28/21 Patient Instructions: 2 Active miSOPROStol (Cytotec) 200 MCG tablet Take 1 tablet (200 mcg) by mouth 2 (two) times a day. 3 Active Respiratory Therapy Supplies (CareTouch CPAP & BIPAP Hose) misc Active furosemide (Lasix) 80 MG tablet Take 1 tablet (80 mg) by mouth 1 (one) time each day. Active methocarbamol (Robaxin) 500 MG tablet Take 1 tablet (500 mg) by mouth 3 (three) times a day if needed for muscle spasms. New Script Active famotidine (Pepcid) 20 MG tablet Take 1 tablet (20 mg) by mouth 1 (one) time each day. Active aspirin 81 MG EC tablet Take 1 tablet (81 mg) by mouth 1 (one) time each day. Active ergocalciferol (Vitamin D-2) 1.25 MG (05125 UT) capsule Take 1 capsule (50,000 Units) by mouth 1 (one) time per week. Sunday . Active atorvastatin (Lipitor) 20 MG tablet Take 1 tablet (20 mg) by mouth 1 (one) time each day. Active EPINEPHrine (EpiPen 2-Rajesh) 0.3 MG/0.3ML injection syringe Inject 0.3 mL (0.3 mg) into the muscle if needed for anaphylaxis. Inject into upper leg. Call 911 after use. Active Diuzo-R-Gtwddkq sidase (Beano) tablet Take 1 tablet by mouth if needed. Active cetirizine (ZyrTEC) 10 MG tablet Take 1 tablet (10 mg) by mouth 1 (one) time each day. Active Creon 15139-984362 units capsule delayed-release particles capsule TAKE 1 CAPSULE BY MOUTH WITH MEALS AND OR SNACKS 5 Active Linzess 290 MCG capsule TAKE 1 CAPSULE BY MOUTH ONCE DAILY IN THE MORNING ON EMPTY STOMACH OR AT LEAST 30 TO 60 MINUTES PRIOR TO BREAKFAST 5 Active MAGnesium-Oxide 400 (240 Mg) MG tablet Take 1 tablet by mouth daily. 5 Active Active Problems Problem Noted Date Diagnosed Date Diabetes 02/14/2022 Overview (02/14/2022): A1c>6.5 Diabetic education F/u PCP outpatient H/O small bowel obstruction 02/12/2022 H/O resection of small bowel 02/12/2022 History of cholecystectomy 02/12/2022 History of appendectomy 02/12/2022 H/O: section 02/12/2022 H/O abdominal hysterectomy 02/12/2022 Hypomagnesemia 02/11/2022 Overview (02/11/2022): Replete as needed HTN (hypertension) 02/11/2022 Overview (02/11/2022): Resume metop Intestinal obstruction 02/10/2022 Overview (10/14/2022): Admit to SGE MIVF and AROBF Obesity (BMI 35.0-39.9 without comorbidity) 07/2021 Overview (02/13/2022): Complicates all aspects of care Resolved Problems Problem Noted Date Diagnosed Date Resolved Date [place] (acute kidney injury) 10/14/2022 Overview (10/14/2022): -MIVF -home diuretics held Hyponatremia 10/14/2022 10/16/2022 Overview (10/14/2022): -MIVF with NS -home diuretics held SBO (small bowel obstruction) 10/14/2022 10/16/2022 UTI (urinary tract infection) 10/14/2022 12/28/2024 Overview (10/14/2022): -asymptomatic Finger dislocation 03/13/2022 Closed fracture dislocation of proximal interphalangeal (PIP) joint of finger with routine healing 02/01/2022 06/06/2022 Encounters Date Type Department Care Team Description 11/18/2024 10:00 AM EDT Office Visit [facility] End[facility] [address] [place] [phone] Tommie Garrison MD Multiple thyroid nodules (Primary Dx) 11/18/2024 Orders Only External Location [address] [place] [address] Provider, External 11/18/2024 Travel from Last 3 Months Family History Medical History Relation Name Comments Depression Brother Drug abuse Brother Hyperlipidemia Brother Hypertension Brother Alcohol abuse Father Depression Father Diabetes Father Heart attack Father Hyperlipidemia Father Heart disease Mother Thyroid disease Mother Brain cancer Other Breast cancer Other Colon cancer Other Stomach cancer Other Uterine cancer Other Relation Name Status Comments Brother Father Mother Other Social History Tobacco Use Types Packs/Day Years Used Date Smoking Tobacco: Never Passive Smoke Exposure: Current Smokeless Tobacco: Never Tobacco Cessation:Counseling Given: Not Answered Alcohol Use Standard Drinks/Week Comments Yes 0 [...] drink first t deepali in the morning (EYE-MICROSOFT SOLUTIONS ARCHITECT) to steady your nerves or to get [...] Pulse 85 11/18/2024 9:37 AM EDT Temperature 36.7 C (98.1 F) 11/23/2022 6:23 PM EDT Respiratory Rate 17 11/23/2022 8:37 PM EDT Oxygen Saturation 97% 11/23/2022 8:37 PM EDT Inhaled Oxygen Concentration - - Weight 142 kg (313 lb 0.9 oz) 11/18/2024 9:37 AM EDT Height 185.4 cm (6' 0.99 ) 11/18/2024 9:37 AM ED T Body Mass Index 41.31 11/18/2024 9:37 AM EDT Plan of Treatment Upcoming Encounters Date Type Department Care Team (Late st Contact Info) Description 11/19/2025 8:00 AM EDT Office Visit [facility] [address] [place] [address] Tommie Garrison MD [address] [facility] [address] [place] [address] Health Maintenance Due Date Last Done Comments [facility]-HIV Screening 1970 [facility]-Infant/Child/Adol SDOH Screenings 1970 Diabetes: Dental Exam 01/24/1978 [facility]- SDOH Screenings 01/24/1986 [facility]-Adult SDOH Screenings 01/24/1986 [facility]-Hepatitis B Vaccines (1 of 3 - 19+ 3-dose series) 01/24/1987 [facility]-DTaP,Tdap,and Td Vaccines (1 - Tdap) 01/07/2003 01/06/2003 CT Colonography 01/24/2013 Colonoscopy 01/24/2013 FIT-DNA 01/24/2013 FIT 01/24/2013 FOBT 01/24/2013 Sigmoidoscopy 01/24/2013 [facility]-Colorectal Cancer Screening 01/24/2013 [facility]-Pneumococcal Vaccine: 50+ Years (2 of 2 - PCV) 01/08/2020 01/07/2019 [facility]-Diabetes: Hemoglobin A1C 08/13/2022 02/13/2022 [id number] Vaccine (3 - season) 2024 06/08/2020, 05/18/2020 [facility]-Influenza Vaccine (#1) 12/08/202401/27, 2023, 01/24/2022, Additional history exists [facility]-Depression Screening 11/18/2025 11/18/2024 [facility]-Breast Cancer Screening 09/29/202609/08, 09/09/2024, 09/09/2024, Additional history exists [facility]-Hepatitis C Screening Completed 12/12/2017 [facility]-Zoster Vaccines Completed 04/15/2020, 0 [facility]-Obesity Intervention Completed 025, 08/24/2022, 08/22/2022, Additional history exists HPV Vaccines Aged Out No longer eligi ble based on patient's age to complete this topic [facility]-HIB Vaccines Aged Out No longer e ligible based on patient's age to complete this topic [facility]-Hepatitis A Vaccines Aged Out No longer eligible based on patient's age to complete this topic [facility]-IPV Vaccines Aged Out No longer e ligible based on patient's age to complete this topic [facility]-Rotavirus Vaccines Aged Out No lo nger eligible based on patient's age to complete this topic Goals Goal Patient Goal Type Associated Problems Recent Progress Patient-Stated? Author LTG: Patient will decrease Quick DASH score to 20% or less demonstrating less perceived impairment due to upper limb condition. Occupational Therapy On track(2022 3:55 PM EDT) No Dede Sevilla Procedures Procedure Name Priority Date/Time Associated Diagnosis Comments POC ULTRASOUND 11/18/2024 HEMOGLOBIN A1C Add-On 02/13/2022 4:30 AM EST HEPATITIS C ANTIBODY - ED W/REFLEX TO HCV QUANT PCR Routine 12/12/2017 3:04 PM EDT from Last 3 Months or Most Recently Relevant to Health Maintenance Results * POC Imaging (11/18/2024) Anatomical Region Laterality Modality Pelvis Other 11/18/2024 us External Provider IMG POINT OF CARE ULTRASOUND F inal Result * (ABNORMAL) Hemoglobin A1c (02/13/2022 4:30 AM EST) Hemoglobin A1c 6.7(H) <5.7 % 02/13/2022 6:43 PM EST [facility] Blood Venous blood specimen / Unknown Venipuncture / Unknown 02/13/2022 4:30 AM EST 02/13/2022 5:31 AM EST Narrative [facility] - 02/13/2022 6:43 PM EST HA1C Interpretive Data: Diagnosis of Diabetes: Diabetic > or = 6.5% Pre-diabetic 5.7 to 6.4% Non-diabetic < or = 5.6% Glycemic Targets for Type I and Type II Diabetics: Non- Adults <7.0% Adults <6.0% Children and Adolescents <7.5% Source: [place] [employer]. Standards of medical care in diabetes,2017. Diabetes Care.2017:40 (suppl 1):S1-S135. HbA1c assay performed by an ion-exchange chromatography method that is certified traceable to the DCCT. us Elisa Mishra APRN LAB BLOOD ORDERABLES Su l Result [facility] [address] [place] [id number] * Blue Eye Hepatitis C Antibody (12/12/2017 3:04 PM EDT) Blue Eye Hepatitis C Ab NEGATIVE Reference Range: Negative SUNQUEST 12/12/2017 3:04 PM EDT 12/12/2017 3:15 PM EDT us Neeru Cannon MD LAB BLOOD ORDERABLES Final Res ult SUNQUEST from Last 3 Months or Most Recently Relevant to Health Maintenance Insurance [facility] Advance Directives * Full Code (Latest Code Status on File) Date Activated Date Inactivated Comments 10/14/2022 3:32 AM 10/16/2022 7:02 PM Question Answer Comments Patient has decision-making capacity? Yes Care Teams Supervisor Drying And Winding Relationship Specialty Start Date End Date Mark Mederos MD [address] [place] [address] PCP - General 05/24/21
--- OUTSIDE RECORDS SUMMARY | 2024-12-30 15:32 | XMS_ITS | Encounter Summary ---
Author Organization Healthcare Address [address] [place] [address] Care Team Providers Care Rotary Shear Worker Helper Name Role Phone Mark Mederos MD Primary Care Provider [phone] Encounter Details Date Type Department Care Team (Latest Contact Info) Description 11/18/2024 Travel Social History Tobacco Use Types Packs/Day Years [...] drink first t deepali in the morning (EYE-QUOTER) to steady your nerves or to get [...] 11/19/2025 8:00 AM EDT [facility] [address] [place] [address] Tommie Garrison MD [address] [address] documented as of this encounter Goals Goal Patient Goal Type Associated Problems Recent Progress Patient-Stated? Author LTG: Patient will decrease Quick DASH score to 20% or less demonstrating less perceived impairment due to upper limb condition. Occupational Therapy On track(2022 3:55 PM EDT) Dede Pineda documented as of this encounter Visit Diagnoses Not on filedocumented in this encounter Additional Health Concerns Assessment Noted Time A fall risk assessment has been complete d for the patient 11/18/2024 9:47 AM EDT A Body Mass Index follow-up plan has been documented for the patient 11/18/2024 9:54 PM EDT documented as of this encounter Care Teams Rotary Shear Worker Helper Relationship Specialty Start Date End Date Mark Mederos MD [address] [place] [address] PCP - General 05/24/21 documented as of this encounter
[2024-12-30 16:01] LABS: Hematocrit 41.1 % (37.0-47.0); Hemoglobin 13.5 g/dL (12.2-16.2); Immature Granulocytes % 0.8 %; Mean Corpuscular HGB Conc 32.8 g/dL (31.8-35.4); Mean Corpuscular Hemoglobin 29.2 pg (27.0-31.2); Mean Corpuscular Volume 88.8 fl (81-99); Nucleated Red Blood Cells % 0 %; Platelet Count 264 K/mm3 (142-424); Red Blood Count 4.63 M/mm3 (4.20-5.40); Red Cell Distribution Width-SD 43.9 fL; White Blood Count 11.9 K/mm3 (4.8-10.8)
[2024-12-30 16:56] LABS: Albumin Level 4.9 g/dl (3.5-5.0)
[2024-12-30 16:57] LABS: Chloride 98 mmol/L (98-107); Potassium 5.5 mmoL/L (3.5-5.1); Sodium 134 mmol/L (136-145)
[2024-12-30 16:59] LABS: Alanine Aminotransferase 36 U/L (12-78); Anion Gap 17.5 mEq/L (5-15); Aspartate Amino Transferase 35 U/L (14-36); Bilirubin,Unconjugated 0.5 mg/dL (0.0-1.1); Blood Urea Nitrogen 16 mg/dl (7-17); Carbon Dioxide 24 mmol/L (22.0-30.0); Creatinine,Serum 0.80 mg/dl (0.52-1.04); Estimated Glomerular Filt Rate 74 ml/min (>60); GFR (African American) 90 ML/MIN (>60)
[2024-12-30 17:00] LABS: Alkaline Phosphatase 65 U/L (38-126); Bilirubin,Direct 0.2 mg/dl (0.0-0.4); Bilirubin,Indirect 0.5 mg/dL (0.0-0.9); Bilirubin,Total 0.7 mg/dl (0.2-1.3); Calcium 10.1 mg/dl (8.4-10.2); Cholesterol 133 mg/dl (140-200); Glucose 117 mg/dl (74-100); HDL Cholesterol 47 mg/dl (40-60); Magnesium 1.4 mg/dl (1.6-2.3); Total Protein,Serum 7.4 g/dl (6.3-8.2); Triglycerides 111 mg/dl (30-150)
[2024-12-30 17:17] LABS: Free T4 (Free Thyroxine) 1.03 ng/dl (0.78-2.19)
[2024-12-30 17:30] LABS: Thyroid Stimulating Hormone 1.58 uIU/mL (0.465-4.68)
== END 2024-12-30 23:59 | disposition home or self-care (01) ==
PROVIDERS: PCP Family Medicine; Visit Provider Internal Medicine
DX: E78.2 Mixed hyperlipidemia (principal); I10 Essential (primary) hypertension
CPT/HCPCS: 36415; 80048; 80061; 80076; 83735; 84439; 84443; 85025

== ENCOUNTER 2025-01-06 15:44 | Outpatient (CLI) | payer BC, SELFPAY ==
--- OUTSIDE RECORDS SUMMARY | 2024-11-18 10:00 | XMS_ITS | Encounter Summary ---
Author Organization [facility] Address [address] [place] [address] Care Team Providers Care Treatment Plant Operator Name Role Phone Mark Mederos MD Primary Care Provider [phone] Reason for Referral * Consultation (Routine) - Pending Review Specialty Diagnoses / Procedures Referred By Chilango santana Referred To Contact Diagnoses Multiple thyroid nodules Tommie Garrison MD [address] [address] Phone: tel: fax: Referral ID Status Reason Start Date Expiration Date V isits Requested Visits Authorized [id number] Pending Review 11/18/2024 05/20/2026 1 1 Reason for Visit * Consultation (Routine) - Closed Specialty Diagnoses / Procedures Referred By Chilango santana Referred To Contact Endocrinology Diagnoses Tumor, thyroid Maico Gillespie MD [address] [address] Phone: tel: fax: Referral ID Status Reason Start Date Expiration Date V isits Requested Visits Authorized [id number] Closed Specialty Services Required 07/22/2024 01/21/2026 1 1 Encounter Details Date Type Department Care Team (Late st Contact Info) Description 11/18/2024 10:00 AM EDT Office Visit [facility]iel[facility] Endocrinology [place] [address] Tommie Garrison MD [address] [address] Multiple thyroid nodules (Primary Dx) Social History Tobacco Use Types Packs/Day Years Used Date Smoking Tobacco: Never Passive Smoke Exposure: Current Smokeless Tobacco: Never Alcohol Use Standard Drinks/Week Comments Yes 0 (1 standard drink = 0.6 oz pur e alcohol) social PHQ-2 Answer Date Recorded Patient Health Questionnaire-2 Score 0 11/18/2024 CAGE ASSESSMENT Answer Date Recorded Cage unable to access Not on file 11/23/2022 Maximum number of drinks you had on a given occasion in the last month? 0 drinks 11/23/2022 How many alcoholic Beverages do you typically drink in a week? 0 - 7 per week 11/23/2022 Have you ever felt you should CUT down on your d rinking? 0 11/23/2022 Have you been ANNOYED by peo ple criticizing your drinking? 0 11/23/2022 Have you felt GUILTY about your drinking? 0 11/23/2022 Have you had a drink first t deepali in the morning (EYE-REALTY SPECIALIST) to steady your nerves or to get rid of a hangover? 0 11/23/2022 CAGE Questionnaire Score 0 023 PHQ-2A Answer Date Recorded Patient Health Questionnaire-2 Score 2 06/19/2022 Comments Unknown Sex and Gender Information Value Date Recorded Sex Assigned at Not on file Legal Sex Female 8:33 PM EDT Gender Identity Not on file Sexual Orientation Not on file documented as of this encounter Last Filed Vital Signs Vital Sign Reading Time Taken Comments Blood Pressure 127/82 11/18/2024 9:37 AM EDT Pulse 85 11/18/2024 9:37 AM EDT Temperature - - Respiratory Rate - - Oxygen Saturation - - Inhaled Oxygen Concentration - - Weight 142 kg (313 lb 0.9 oz) 11/18/2024 9:37 AM EDT Height 185.4 cm (6' 0.99 ) 11/18/2024 9:37 AM ED T Body Mass Index 41.31 11/18/2024 9:37 AM EDT documented in this encounter Functional Status * Over the past 2 weeks, how often have you been bothered by any of the following problems? Question Answer Date of Assessment Author Little interest or pleasure in doing things Not at all 11/18/2024 9:47 AM FLORT Levon Thibodeaux Feeling down, depressed, or hopeless Not at all 11/18/2024 9:47 AM FLORT Levon Thibodeaux Patient Health Questionnaire -2 Score 0 11/18/2024 9:47 AM EDT Levon Thibodeaux documented as of this encounter Miscellaneous Notes * Progress Notes - Tommie Garrison MD - 11/18/2024 10:00 AM EDT Reason for visit: Referral from Maico Gillespie MD Re: Thyroid nodules. Subjective Amalia Gonzalez is a 54 y.o. female. The patient reports that a number of years ago (unsure of the date), she had a thyroid ultrasound and she was told with a thyroid cyst. She thinks the ultrasound was checked d/t abn Thyroid lab but she is not sure. On a thyroid ultrasound on 11/21/2018 (compared to a thyroid ultrasound dated 10/11/2016), she was reported with small Thyroid nodules. She says the US was done due to trouble swallowing. According to the available records, she had another thyroid ultrasound on 09/29/2020 which was reported with subcentimeter left lobe nodules. Since it has been a while, her daughter encouraged her to get her thyroid checked again. TSH and free T4 were normal on 06/24/2024 but she apparently did not have a thyroid US. She denies swallowing problem. She denies voice change. She reports pressure in the low anterior neck since a while. The patient is not on thyroid hormone or anti-thyroid drug. There is no personal history of exposure to radiation. 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 There is family history of Thyroid problem. Her dtr had a thyroidectomy. There is family history of Thyroid cancer, mother. Objective VS: Blood pressure 127/82, pulse 85, height 1.854 m (6' 0.99 ), weight 142 kg (313 lb 0.9 oz). Body mass index is 41.31 kg/m??. PE: Constitutional: Appearance: not ill-appearing. HENT: NL voice. Eyes: Extraocular Movements: intact. Cardiovascular: Heart Rate: Normal. Pulmonary: Effort: Pulmonary effort is normal. Musculoskeletal: Right lower leg: No edema. Left lower leg: No edema. Neurological: Mental Status: alert. No tremor. Laboratory Tests Reviewed: WBC Count Date Value Ref Range Status 11/23/2022 11.63 (H) 3.70 - 10.30 10*3/uL Final HGB Date Value Ref Range Status 11/23/2022 12.4 11.2 - 15.7 g/dL Final HCT Date Value Ref Range Status 11/23/2022 37.7 34.0 - 45.0 % Final Potassium, Plasma Date Value Ref Range Status 11/23/2022 5.1 (H) 3.7 - 4.8 mmol/L Final Creatinine, Plasma Date Value Ref Range Status 11/23/2022 1.07 0.60 - 1.10 mg/dL Final Total Calcium, Plasma Date Value Ref Range Status 11/23/2022 10.6 (H) 8.9 - 10.2 mg/dL Final Albumin, Plasma Date Value Ref Range Status 11/23/2022 4.9 3.5 - 5.2 g/dL Final AST, Plasma Date Value Ref Range Status 11/23/2022 28 11 - 32 U/L Final ALT, Plasma Date Value Ref Range Status 11/23/2022 33 8 - 33 U/L Final 06/24/2024 creatinine 0.8 calcium 9.4 albumin 4.5 AST 31 ALT 33 TSH 1.35 F T4 1.10 10/21/2020 TPO antibody 17 TG antibody less than 1 Thyroid ultrasound 09/29/2020 Right lobe 5.2 x 1.7 x 1.7 cm. Normal echogenicity. Left lobe 4.9 x 1.4 x 1.6 cm, normal echogenicity. There is a 5 x 2 x 6 mm hypoechoic nodule consistent with a TR 5 nodule and a 2nd nodule 3 x 4 x 2 mm and is consistent with a TR 4 nodule. Impression: Subcentimeter left lobe nodules. One year follow-up recommended. Thyroid ultrasound 11/21/2018 Comparison: 10/11/2016 Size normal Echogenicity is homogeneous Two hypoechoic nodules in the left thyroid which appear solid. The lesion in the upper lobe measures up to 4 mm, previously 3 mm. The lesion in the left lower lobe was not seen on prior exam and measures 4 mm. Both nodules are TR 4. There is a 3 mm right lobe lesion which appears cystic. Assessment/Plan Thyroid nodules She has a history of sub centimeter thyroid nodules. On the most recent available thyroid ultrasound from 09/2020, she was reported with 2 subcentimeter left thyroid nodules, 1 was classified as TR 5and the other 1 was classified as TR 4. Will recheck a thyroid ultrasound today to reassess. Most recent TSH and free T4 normal in 06/2024. Thyroid Ultrasound performed today Real time high resolution imaging of the thyroid was performed in transverse and longitudinal planes. Images were saved and archived to PACS. Findings: The right thyroid lobe measured: 4.64 cm in length x 1.71 cm in width x 2.19 cm in depth Isthmus measured: 0.98 cm in thickness The left thyroid lobe measured: 4.38 cm in length x 1.55 cm in width x 1.58 cm in depth Thyroid Texture: Homogeneous Thyroid vascularity: Not increased Nodules: Right thyroid: Towards the inferior aspect, medially, a cystic nodule: 0.38 cm in length x 0.40 cm in width x 0.27 cm in depth Left thyroid: Towards the upper aspect, a hypoechoic nodule: 0.59 cm in length x 0.62 cm in width x 0.42 cm in depth Impression: Thick isthmus. Subcentimeter thyroid nodules. Recommendations: Monitor. N.B. while lying supine for the ultrasound procedure, the patient felt dizzy, sweaty, and nauseated. She said she had the same symptoms when she had her previous thyroid ultrasound. Her symptoms improved after sitting up and the ultrasound was performed with the patient sitting upon the exam table. RTC: one year. Tests ordered: Thyroid US 1 year on ov. Electronically signed by: Tommie Garrison MD [facility] ENDOCRINOLOGY [address] [place] [address]. [address] [place]. [address] PHONE [phone] FAX: [phone] documented in this encounter Plan of Treatment Upcoming Encounters Date Type Department Care Team (Late st Contact Info) Description 11/19/2025 8:00 AM EDT Office Visit Long [facility] Endocrinology [address] [place] [address] Tommie Garrison MD [address] [place] [address] Scheduled Referrals Name Type Priority Associated Diagnoses Orde r Schedule Follow Up [facility] Outpatient Referral Routine Multiple thyroid nodules Expected: 11/18/2025, Expires: 05/22/2026 documented as of this encounter Goals Goal Patient Goal Type Associated Problems Recent Progress Patient-Stated? Author LTG: Patient will decrease Quick DASH score to 20% or less demonstrating less perceived impairment due to upper limb condition. Occupational Therapy On track(2022 3:55 PM EDT) Dede Pineda documented as of this encounter Visit Diagnoses Diagnosis Multiple thyroid nodules- Primary Nontoxic multinodular goiter documented in this encounter Additional Health Concerns Assessment Noted Time A fall risk assessment has been complete d for the patient 11/18/2024 9:47 AM EDT A Body Mass Index follow-up plan has been documented for the patient 11/18/2024 9:54 PM EDT documented as of this encounter Care Teams Treatment Plant Operator Relationship Specialty Start Date End Date Mark Mederos MD [address] [place] [address] PCP - General 05/24/21 documented as of this encounter
--- OUTSIDE RECORDS SUMMARY | 2025-01-06 15:46 | XMS_ITS | Patient Health Record ---
Author Organization [facility] Address [address] [facility] [address] [place] [address] Care Team Providers Care Agile Developer Name Role Phone Tanika Garsia Unavailable [phone] Allergies Allergen (clinical drug ingredient) Drug/Non Drug Allergy documented on EMR Reaction Allergy Type Onset Date Status PENICILLIN V POTASSIUM (PENICILLIN V POTASSIUM TAB Unspecified Drug Allergy 11/05/2019 Active SEPTRA (SULFAMETHOXAZOLE- TRIMETHOPRIM TABS) Unspecified Drug Allergy 11/05/2019 Active sulfamethoxazole / trimethoprim SULFAMETHOXAZOLE-T RIMETHOPRIM Unspecified Drug Allergy 11/05/2019 Active Reason For Referral No Information Problems Problem Type SNOMED Code ICD Code Onset Dates Problem Status W/U Status Risk Notes Problem Bleeding after intercourse (60355500) Bleeding after intercourse (N93.0) 11/05/19 20 Active confirmed Postcoital bleeding Plan Of Treatment No Information Medical (General) History Medical History History ICD Code Anxiety Asthma Depression Fibriod uterinie High blood pressure Obesity UTI METOPROLOL SUCCINATE ER 100 MG ORAL TABL ET EXTENDED RELEASE 24 HOUR, ORAL METAMUCIL CAPSULE MIRALAX PACKET ATORVASTATIN CALCIUM 20 MG ORAL TABLET, ORAL OMEPRAZOLE 40 MG ORAL CAPSULE DELAYED RE LEASE, ORAL SUCRALFATE 1 GM ORAL TABLET, ORAL BUSPIRONE HCL 10 MG ORAL TABLET, ORAL DOXYCYCLINE HYCLATE 100 MG ORAL CAPSULE, ORAL LISINOPRIL 20 MG ORAL TABLET, ORAL ALLERGY RELIEF 10 MG ORAL CAPSULE, ORAL Surgical History Surgery Date(Month/Year) Tonsils, Hysterectomy, Uteri n abladtion, 3x cestions, 2x reconstruction intertins, gall bladder removed, appendix removal, tabaligation.
--- OUTSIDE RECORDS SUMMARY | 2025-01-06 15:46 | XMS_ITS | Encounter Summary ---
Author Organization Healthcare Address [address] [place] [address] Care Team Providers Care Early Education Teacher Name Role Phone Mark Mederos MD Primary Care Provider [phone] Encounter Details Date Type Department Care Team [...] drink first t deepali in the morning (EYE-ASSOCIATE FIELD SERVICE ENGINEER) to steady your nerves or to get [...] 8:00 AM EDT Office Visit [facility] [address] [place] [address] Tommie Garrison MD [address] [address] documented as of this encounter [...] documented as of this encounter Care Teams Early Education Teacher Relationship Specialty Start Date End Date Mark Mederos MD [address] [place] [address] PCP - General 05/24/21 documented as of this encounter
--- OUTSIDE RECORDS SUMMARY | 2025-01-06 15:46 | XMS_ITS | Encounter Summary ---
Author Organization Healthcare Address [address] [place] [address] Care Team Providers Care Experimental Technician Name Role Phone Mark Mederos MD Primary Care Provider Encounter Details Date Type Department Care Team (Late st Contact Info) Description 11/18/2024 Orders Only External Location [address] [place] [address] Provider, External Social History Tobacco Use Types [...] drink first t deepali in the morning (EYE-PROFESSOR OF MARKETING) to steady your nerves or to get [...] 11/19/2025 8:00 AM EDT [facility] [address] [place] [phone] Tommie Garrison MD [address] [facility] [address] [place] [phone] documented as of this encounter Goals Goal [...] documented as of this encounter Care Teams Experimental Technician Relationship Specialty Start Date End Date Mark Mederos MD [address] [place] [address] PCP - General 05/24/21 documented as of this encounter
--- OUTSIDE RECORDS SUMMARY | 2025-01-06 15:46 | XMS_ITS | Clinical Summary ---
Author Organization [facility] Address [address] [place] [address] Care Team Providers Care Registered Nurse Maternity Name Role Phone Mark Mederos MD Primary Care Provider [phone] Allergies Active Allergy Reactions Criticality Noted Date [...] day. Active ergocalciferol (Vitamin D-2) 1.25 MG (06432 UT) capsule Take 1 capsule (50,000 Units) by mouth 1 (one) time per week. Sunday . Active atorvastatin (Lipitor) 20 MG tablet Take 1 tablet (20 mg) by mouth 1 (one) time each day. Active EPINEPHrine (EpiPen 2-Rajesh) 0.3 MG/0.3ML injection syringe Inject 0.3 mL (0.3 mg) into the muscle if needed for anaphylaxis. Inject into upper leg. Call 911 after use. Active Zdmai-U-Spofbvd sidase (Beano) tablet Take 1 tablet by mouth if needed. Active cetirizine (ZyrTEC) 10 MG tablet Take 1 tablet (10 mg) by mouth 1 (one) time each day. Active Creon 08900-864155 units capsule delayed-release particles capsule TAKE 1 [...] Description 11/18/2024 10:00 AM EDT Office Visit [facility] Endocrinology [address] [place] [id number] Tommie Garrison MD Multiple thyroid nodules (Primary Dx) 11/18/2024 Orders Only External Location [address] [place] [address] Provider, External 11/18/2024 Travel from Last 3 [...] drink first t deepali in the morning (EYE-TOWN CLERK) to steady your nerves or to get [...] Description 11/19/2025 8:00 AM EDT Office Visit [facility] Endocrinology [address] [place] [address] Tommie Garrison MD [address] [place] [address] Health Maintenance Due Date Last [...] 01/08/2020 01/07/2019 [facility]-Diabetes: Hemoglobin A1C 08/13/2022 02/13/2022 [id number] Vaccine (3 - season) 2024 06/08/2020, 05/18/2020 [...] 6.7(H) <5.7 % 02/13/2022 6:43 PM EST [facility] Blood Venous blood specimen / Unknown [...] Adults <6.0% Children and Adolescents <7.5% Source: [place] [employer]. Standards of medical care in diabetes,2017. Diabetes Care.2017:40 (suppl 1):S1-S135. HbA1c assay performed by an ion-exchange chromatography method that is certified traceable to the DCCT. us Elisa Mishra APRN LAB BLOOD ORDERABLES Su l Result [facility] [address] [place] [id number] * [place] Hepatitis C Antibody (12/12/2017 3:04 PM EDT) [place] Hepatitis C Ab NEGATIVE Reference Range: Negative SUNQUEST 12/12/2017 3:04 PM EDT 12/12/2017 3:15 PM EDT us Neeru Cannon MD LAB BLOOD ORDERABLES Final Res ult SUNQUEST from Last 3 Months or Most Recently Relevant to Health Maintenance Insurance [facility] Advance Directives * Full Code (Latest Code Status on File) Date Activated Date Inactivated Comments 10/14/2022 3:32 AM 10/16/2022 7:02 PM Question Answer Comments Patient has decision-making capacity? Yes Care Teams Registered Nurse Maternity Relationship Specialty Start Date End Date Mark Mederos MD [address] [place] [id number] PCP - General 05/24/21
--- OUTSIDE RECORDS SUMMARY | 2025-01-06 15:46 | XMS_ITS | Clinical Summary ---
Author Organization [facility] Address [address] [place] [address] Care Team Providers Care Cloud Software Engineer Name Role Phone Mark Mederos MD Primary Care Provider [phone] Allergies Active Allergy Reactions Criticality Noted Date [...] (03/29/2017): Added automatically from request for surgery [id number] Encounters Date Type Department Care Team Description 10/15/2024 11:30 AM EDT Lab [facility] [address] [place] [address] Personal history of other malignant neoplasm of small intestine; Family history of colonic polyps; Genetic testing 10/15/2024 Travel from Last 3 Months Family History [...] 01/24/2022, Additional history exists MAMMOGRAM 09/09/2026 09/09/2024, 08/08, 07/07/2014, Additional history exists ZOSTER VACCINE Completed 04/15/2020, 02/13/2020 Medical Devices Implanted Type Area Bell Spinner Sousaphones Device Identifier Shelf Expiration Date Model / Serial / Lot Implant Implant 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 Bone Implant 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 Bone Description:implant in mouth Procedures Procedure Name Priority Date/Time Associated Diagnosis Comments [facility] CAN[facility]ERNEXT+RNAINSIGHT Routine 10/15/2024 11:29 AM EDT Personal history of other malignant neoplasm of small intestine Family history of colonic polyps Genetic testing MAMMO DIAGNOSTIC DIGITAL TOMOSYNTHESIS BILATERAL W CAD Routine 09/09/2024 10:02 AM EDT Abnormal mammogram SCANNED - PAP SMEAR 06/24/2013 from Last 3 Months or Most Recently Relevant to Health Maintenance Results * [facility] - Blood, (10/15/2024 11:29 AM EDT) Overall Interpretation NEGATIVE: No Clinically Significant Variants Detected 10/30/2024 7:27 PM EDT [employer] Interpretation Report See Notes^^LN 10/30/2024 7:27 PM EDT [employer] Comment:Galen[facility] Report Blood Venipuncture / Unknown 10/15/2024 11:29 AM EDT 10/15/2024 11:29 AM EDT us Mark Mederos MD GENETIC TESTING Final Result [employer]
[address] [place] [address], [place] [phone] * (ABNORMAL) Mammo Diagnostic Digital Tomosynthesis Bilateral [...] Most Recently Relevant to Health Maintenance Insurance [employer] Care Teams Cloud Software Engineer Relationship Specialty Start Date End Date Mark Mederos MD [address] [place] [address] PCP - General Family Medicine 03/30/17
[2025-01-06 18:10] LABS: Anion Gap 17.3 mEq/L (5-15); Blood Urea Nitrogen 16 mg/dl (7-17); Calcium 10.2 mg/dl (8.4-10.2); Carbon Dioxide 24 mmol/L (22.0-30.0); Chloride 97 mmol/L (98-107); Creatinine,Serum 1.00 mg/dl (0.52-1.04); Estimated Glomerular Filt Rate 57 ml/min (>60); GFR (African American) 69 ML/MIN (>60); Glucose 105 mg/dl (74-100); Potassium 5.3 mmoL/L (3.5-5.1); Sodium 133 mmol/L (136-145)
== END 2025-01-06 23:59 | disposition home or self-care (01) ==
LOC: LAB 15:45
PROVIDERS: PCP Family Medicine; Visit Provider Nurse Practitioner
DX: E83.51 Hypocalcemia (principal)
CPT/HCPCS: 36415; 80048